=== PATIENT | female | born 1970 | race Caucasian/White ===

== ENCOUNTER → 2016-05-15 | Outpatient (CLI) | payer BC ==
[2016-05-15 15:11] VITALS: BP 138/87; PULSE 78; TEMP 97.8; BMI 53.2
--- NOTE | 2016-05-15 15:22 | P.BASOAP ---
Subjective Principal diagnosis: Morbid obesity Patient here today follow-up post sleeve gastrectomy. She has an about 3 months now.. Denies hunger. No heartburn. She is still taking her omeprazole once daily. No problems with vomiting. She has had about an 18 pound weight loss in the last 7 weeks. No abdominal pain. Objective - Vital Signs Vital signs: Vital Signs Temp 97.8 F 05/15/16 15:05 Pulse 78 05/15/16 15:05 Resp BP 138/87 05/15/16 15:05 Pulse Ox Intake & Output 05/14/16 05/15/16 05/15/16 18:59 06:59 18:59 Weight 132.086 kg - Exam Abdomen: Soft, nontender, nondistended Assessment/Plan (1) Morbid obesity Narrative/Plan: Continue daily PPIs for now. We'll check 3 months lab work. Continue following exercise and dietary regimen. Follow-up in the office 6 weeks. Plan: Date: 05/15/16 Initial Weight: 153.859 kg Initial BMI: 62.0 Current Weight: 132.086 kg Current BMI: 53.2 Type of Surgery: Total Volume in Band: Previous Volume: Volume Removed: Volume Added: Band Size:
[2016-05-15 16:15] LABS: CHCM 32.1; HCT 42.7 % (34.0-46.0); HDW 2.34; HGB 13.9 gm/dL (11.4-16.0); MCH 29.6 pg (25.0-35.0); MCHC 32.5 g/dL (31.0-37.0); MCV 90.9 fL (80.0-100.0); Mean Platelet Volume 7.3; RDW 13.6 % (11.5-15.5); WBC 8.3 k/uL (3.8-10.6)
[2016-05-15 16:25] LABS: ALT 37 U/L (9-52); AST 25 U/L (14-36); Alkaline Phosphatase 109 U/L (38-126); Anion Gap 14 mmol/L; Blood Urea Nitrogen 15 mg/dL (7-17); Calcium 9.6 mg/dL (8.4-10.2); Carbon Dioxide 26 mmol/L (22-30); Chloride 105 mmol/L (98-107); Glucose 129 mg/dL (74-99); Iron 30 ug/dL (37-170); Non-African American GFR(MDRD) >60 (>60 ml/min/1.73 sqM); Potassium 3.9 mmol/L (3.5-5.1); Sodium 145 mmol/L (137-145); Total Bilirubin 0.6 mg/dL (0.2-1.3); Total Protein 7.3 g/dL (6.3-8.2)
[2016-05-15 17:29] LABS: Vitamin B12 328 pg/mL (239-931)
== END | disposition home or self-care (01) ==
LOC: BARWHC3 14:44
PROVIDERS: ATTEND Surgery
DX: E66.01 Morbid (severe) obesity due to excess calories (principal); K90.9 Intestinal malabsorption, unspecified; E46 Unspecified protein-calorie malnutrition; E55.9 Vitamin D deficiency, unspecified; Z48.815 Encounter for surgical aftercare following surgery on the digestive system; Z79.899 Other long term (current) drug therapy
CPT/HCPCS: 36415; 80053; 82306; 82607; 82746; 83540; 84425; 85027; 99211

== ENCOUNTER 2016-06-21 09:55 | Emergency (ER) | payer BC ==
[2016-06-21] MEDS ORDERED: ONDANSETRON 4 MG/2 ML VIAL IVP STA ×2 (10:29→15:36)
[2016-06-21] MEDS ORDERED: RX INFO: IV CONTRAST WAS GIVEN 1 EACH MISC MISCELLANE PRN (10:29)
[2016-06-21] MEDS ORDERED: HYDROmorphone 1 MG/ML 1 ML SYRINGE IVP STA (10:29)
[2016-06-21] MEDS ORDERED: IOHEXOL 350 MG/ML 25 ML BOTTLE (ORAL USE) PO PRN (10:29)
[2016-06-21] MEDS ORDERED: SODIUM CHLORIDE 0.9% 1,000 ML IV ONE ×2 (10:29→11:36)
[2016-06-21 10:50] LABS: Basophils # (A) 0.1 k/uL (0-0.2); Basophils % (A) 1 %; CH 29.9; CHCM 33.4; Eosinophils # (A) 0.2 k/uL (0-0.7); Eosinophils % (A) 2 %; HCT 41.5 % (34.0-46.0); HDW 2.29; HGB 13.9 gm/dL (11.4-16.0); Luc # (Auto) 0.21; Luc % (Auto) 2; Lymphocytes # (A) 1.8 k/uL (1.0-4.8); Lymphocytes % (A) 19 %; MCHC 33.4 g/dL (31.0-37.0); MCV 89.8 fL (80.0-100.0); Mean Platelet Volume 7.7; Monocytes # (A) 0.3 k/uL (0-1.0); Monocytes % (A) 3 %; Neutrophils % (A) 73 %; RBC 4.62 m/uL (3.80-5.40); RDW 13.5 % (11.5-15.5); WBC 9.6 k/uL (3.8-10.6); WBC (Perox) 9.74
[2016-06-21 11:01] LABS: INR 1.1 (<1.1); Partial Thromboplastin Time 24.2 sec (22.0-30.0); Prothrombin Time 10.7 sec (9.0-12.0)
[2016-06-21 11:02] LABS: ALT 48 U/L (9-52); AST 79 U/L (14-36); Alkaline Phosphatase 120 U/L (38-126); Anion Gap 13 mmol/L; Blood Urea Nitrogen 14 mg/dL (7-17); Calcium 9.5 mg/dL (8.4-10.2); Carbon Dioxide 26 mmol/L (22-30); Chloride 105 mmol/L (98-107); Glucose 112 mg/dL (74-99); Non-African American GFR(MDRD) >60 (>60 ml/min/1.73 sqM); Potassium 3.8 mmol/L (3.5-5.1); Sodium 144 mmol/L (137-145); Total Bilirubin 0.8 mg/dL (0.2-1.3); Total Protein 7.2 g/dL (6.3-8.2)
[2016-06-21 11:12] LABS: Appearance,Urine Cloudy (Clear); Bacteria,Urine Moderate /hpf; Bilirubin,Urine Negative (Negative); Glucose,Urine (UA) Negative (Negative); Ketones,Urine Negative (Negative); Leukocyte Esterase,Urine Negative (Negative); Mucus,Urine Rare /hpf; Nitrite,Urine Negative (Negative); PH, Urine 5.5 (5.0-8.0); Particle Count 24148; Protein,Urine Trace (Negative); Specific Gravity,Urine 1.021 (1.001-1.035); Squamous Epithelial Cell,Urine 8 /hpf (0-4); UA Billing (MACRO vs. MICRO) MICRO; Urobilinogen,Urine <2.0 mg/dL (<2.0); WBC,Urine 14 /hpf (0-5)
--- NOTE | 2016-06-21 12:10 | CT ---
EXAMINATION TYPE: CT abdomen pelvis w con DATE OF EXAM: 06/21/2016 11:51 AM COMPARISON: NONE HISTORY: 45-year-old female with abdominal and pelvic pain TECHNIQUE: Contiguous axial scanning of the abdomen and pelvis following administration of 96 ml Omni paque 300 IV contrast. Delayed images through the kidneys and coronal/sagittal reconstructions perfo rmed. CT DLP: 3009.8 mGycm Automated exposure control for dose reduction was used. FINDINGS: The heart is upper limits of normal in size without pericardial effusion. Postsurgical changes of sleeve gastrectomy. There is mild prominence of the bile duct 9 mm but with normal distal tapering. Also, the gallbladder is mildly distended at 4.7 cm wide. The liver is enlarged at 19.8 cm craniocaudal. No focal liver le taiwo seen. Adrenal glands, left kidney, spleen, and pancreas appear within normal limits. Subcentimeter hypodens ity lateral mid pole right kidney too small for accurate CT characterization, probable cyst. No dilated small bowel, free fluid, or free air. Normal appendix. Mild stool burden and scattered left hemicolonic diverticulosis without pericolonic inflammatory hsieh ge. There are numerous nonenlarged mesenteric lymph nodes in the central mesentery with associated monty mesentery, for example, axial image 49 and coronal image 32. No mesenteric or retroperitoneal lymphad enopathy by CT size criteria. Tiny fatty umbilical hernia. Bladder is nondistended. Uterus surgically absent. Ovaries are visualized with a 1.9 cm dominant foll icle or functional cyst in the left ovary. No abnormal fluid collection in the pelvis or pelvic lymph adenopathy. Bones: Degenerative changes at the hips and bilateral L5 pars defects with grade 1 L5-S1 anterolisthe sis. No osseous destructive process. IMPRESSION: 1. MONTY MESENTERY WITH ASSOCIATED SMALL CENTRAL MESENTERIC LYMPH NODES. FINDINGS SUGGEST MESENTERIC PANNICULITIS. RECOMMEND 3 MONTH FOLLOW-UP EXAM EARLY LYMPHOMA CAN ALSO HAVE THIS APPEARANCE. 2. LEFT-SIDED COLONIC DIVERTICULOSIS WITHOUT ACUTE DIVERTICULITIS. 3. HEPATOMEGALY (19.8 CM). 4. PROMINENCE TO THE BILE DUCT PROBABLY CHRONIC IN THIS PATIENT THERE IS NORMAL DISTAL TAPERING. C ORRELATE WITH ALKALINE PHOSPHATASE AND BILIRUBIN LEVELS. 5. THE GALLBLADDER IS DISTENDED LIKELY DUE TO FASTING STATE. IF RIGHT UPPER QUADRANT PAIN, ULTRASOUND FOLLOW-UP CAN BE PERFORMED.
[2016-06-21 13:20] VITALS: RESP 14
--- NOTE | 2016-06-21 14:43 | US ---
EXAMINATION TYPE: US abdomen limited DATE OF EXAM: 06/21/2016 2:18 PM COMPARISON: CT abdomen and pelvis from earlier today. CLINICAL HISTORY: Pain. EXAM MEASUREMENTS: Liver Length: 18.3 cm Gallbladder Wall: 0.2 cm CBD: 0.9 cm Right Kidney: 10.9 x 4.5 x 4.9 cm Pancreas: portions visualized wnl Liver: Increased attenuation, decreased visualization of vessels suggestive of fatty infiltrate Gallbladder: unable to visualize neck due to obesity, tenderness, extensive bowel gas, portions visu alized wnl, Evidence for sonographic Gunderson's sign: entire abdomen tender CBD: dilated Right Kidney: echogenic focus mid measuring 0.4 x 0.3 x 0.5cm Patient morbidly obese makings exam technically difficult and somewhat limited. Visualized pancreas i s unremarkable and correlates with recent CT. Liver is heterogeneously hyperechoic in appearance cons istent with diffuse fatty infiltration. No obvious mass or ductal dilatation is seen. Common bile christel t is mildly dilated which correlates with CT. Gallbladder has distended margins without intraluminal CT dense gallstones. No pericholecystic fluid or abnormal gallbladder wall thickening is seen. IMPRESSION: No gallstones or ultrasound evidence for acute cholecystitis. There is mild extrahepatic biliary dilatation without intrahepatic biliary dilatation. Need to further investigate by ERCP shoul d be based on clinical and lab correlation.
[2016-06-21] MEDS ORDERED: MORPHINE SULFATE 4 MG/ML SYRINGE IVP STA (15:36)
--- NOTE | 2016-06-21 15:42 | ED ---
General Adult HPI - General Chief complaint: Abdominal Pain Stated complaint: POST OP PAIN Time Seen by Provider: 06/21/16 10:12 Source: patient Mode of arrival: wheelchair Limitations: no limitations - History of Present Illness Initial comments: 45-year-old female with a past medical history of gastric bypass presented for evaluation of sudden onset abdominal pain 2 hours prior to arrival. She states the abdominal pain is located in the suprapubic/ periumbilical region without any radiation. Pain was minimal initially but acutely worsened over the second hour prior to coming to the ED. There is associated nausea and vomiting with out any other symptoms including chest pain , shortness of breath, fevers, chills. She states last night she had some diarrhea but denies any bowel abnormalities today. Denies any vaginal bleeding or discharge and has had a tubal ligation. - Related Data Home Medications Medication Instructions Recorded Confirmed Benazepril HCl [Lotensin] 20 mg PO HS 11/07/15 06/21/16 Escitalopram [Lexapro] 10 mg PO HS 11/07/15 06/21/16 Calcium Citrate 250 mg PO DAILY 05/15/16 06/21/16 Multivitamin [Multivitamins Adult 1 tab PO DAILY 05/15/16 06/21/16 Gummies] Ferrous Sulfate [Feosol] 325 mg PO DAILY 06/21/16 06/21/16 Previous Rx's Medication Instructions Recorded Omeprazole 20 mg PO DAILY #90 cap 01/30/16 HYDROcodone/APAP 5-325MG [Dickson 1 - 2 tab PO Q6HR PRN #14 tab 06/21/16 5-325] Ondansetron Odt [Zofran Odt] 4 mg PO Q8HR PRN #14 tab 06/21/16 Allergies Allergy/AdvReac Type Severity Reaction Status Date / Time Sulfa (Sulfonamide Allergy Rash/Hives Verified 06/21/16 10:46 Antibiotics) and SOB Review of Systems ROS Statement: Those systems with pertinent positive or pertinent negative responses have been documented in the HPI. General: Patient denies fever, chills, positive nausea and vomiting. HEENT: No visual changes. No eye pain. No nasal symptoms. No dysphagia.No odynophagia. No ENT pain. Cardiac: No chest pain. No palpitations. Pulmonary; No dyspnea. No cough. GI: Positive abdominal pain. Positive diarrhea last night. No constipation. No bowel habit changes. No melena. No hematochezia. : No dysuria.No hematuria. No hesitancy. No urgency. No renal lithiasis history. Musculoskeletal: No musculoskeletal pain. Orthopedic: Denies fracture history. Integumentary: Denies rash. Denies pruritis. Neurologic: Denies any lateralizing weakness. Denies numbness. Denies tingling. No seizure activity. Endocrine: Denies polyuria and polydipsia. Heme/Onc: Denies anemia. Denies cancer. Denies adenopathy. ROS Other: All systems not noted in ROS Statement are negative. Past Medical History Past Medical History: Hypertension, Pneumonia, Sleep Apnea/CPAP/BIPAP History of Any Multi-Drug Resistant Organisms: None Reported Past Surgical History: Hysterectomy Additional Past Surgical History / Comment(s): 01-30-16 LAP SLEEVE GASTRECTOMY W /REPAIR OF HAITAL HERNIA Additional Past Anesthesia/Blood Transfusion Reaction / Comment(s): c/o itching with twilight Past Psychological History: Anxiety Smoking Status: Never smoker Past Alcohol Use History: None Reported Past Drug Use History: None Reported General Exam - General Exam Comments Initial Comments: General: The patient is awake and alert, in no distress, and does not appear acutely ill. Eye: Pupils are equal, round and reactive to light, extra-ocular movements are intact; there is normal conjunctiva bilaterally. No signs of icterus. Ears, nose, mouth and throat: There are moist mucous membranes and no oral lesions. Neck: The neck is supple, there is no tenderness or JVD. Cardiovascular: There is a regular rate and rhythm. No murmur, rub or gallop is appreciated. Respiratory: Lungs are clear to auscultation, respirations are non-labored, breath sounds are equal. No wheezes, stridor, rales, or rhonchi. Gastrointestinal: Soft, non-distended, mildly tender to palpation in the suprapubic and periumbilical area without Gunderson's sign or McBurney's point tenderness without masses or organomegaly noted. There is no rebound or guarding present. No CVA tenderness. Bowel sounds are unremarkable. Back: There is no tenderness to palpation in the midline. There is no obvious deformity. No rashes noted. Musculoskeletal: Normal ROM, no tenderness, There is no pedal edema. There is no calf tenderness or swelling. Sensation intact. Pulses equal bilaterally 2+. Neurological: CN II-XII intact, There are no obvious motor or sensory deficits. Coordination appears grossly intact. Speech is normal. Skin: Skin is warm and dry and no rashes or lesions are noted. Psychiatric: Cooperative, appropriate mood & affect, normal judgment. Limitations: no limitations Course Vital Signs 06/21/16 06/21/16 06/21/16 10:01 10:51 13:19 Temperature 97 F L Pulse Rate 108 H 105 H 73 Respiratory 24 16 14 Rate Blood Pressure 170/74 150/78 129/62 O2 Sat by Pulse 100 98 99 Oximetry 06/21/16 06/21/16 15:55 16:23 Temperature 98.4 F Pulse Rate 71 64 Respiratory 14 14 Rate Blood Pressure 115/59 117/57 O2 Sat by Pulse 95 95 Oximetry EKG Findings - EKG Comments: EKG Findings:: Normal sinus rhythm with prolonged QT and a ventricular rate of 92 bpm, MIKO 164, QRS 90, QT/QTc 402/497 Medical Decision Making - Medical Decision Making 45-year-old female with past medical history of gastric bypass presented for evaluation of suprapubic/periumbilical abdominal pain that started suddenly 2 hours prior to arrival acutely worsening over that second hour. Upon presentation to the ED patient does appear distressed and is holding her abdomen. There is tenderness to palpation in the aforementioned areas but no peritoneal signs including rebound, rigidity, or guarding. Given her past medical history of gastric bypass concern for viscus perforation versus alcohol distraction is high on differential. We'll obtain CT abdomen, EKG, labs, and provide IV fluids, pain control, and Zofran. Labs revealed a mild lactic acidosis but otherwise no significant abnormalities. Imaging results noted below. CT abdomen with gastric prep showing monty mesentery with associated small central mesenteric lymph nodes. Findings suggest mesenteric panniculitis. There is also left-sided colonic diverticulosis without diverticulitis. There is prominence of the bile ducts probably chronic in this patient as there is normal distal tapering. Gallbladder is distended likely due to fasting state. Ultrasound abdomen shows no gallstones or ultrasound evidence of acute cholecystitis. There is mild extrahepatic biliary dilatation without intrahepatic biliary dilatation. Patient reevaluated and had resolution of her symptoms. She was updated on these results and stated that given her improvement she would prefer to be discharged home. Admission was offered but she stated she would rather go home and follow-up as an outpatient. She is informed that this follow-up must occur within the next 24 hours with the exception of if her symptoms worsen in which case she should return to this facility immediately. The patient's primary care physician Dr. Friend was updated on her status and stated he would see her in the morning. Her bypass surgeon Dr. Guillen was also called and agreed with plan to discharge and outpatient follow-up. The patient was informed of this and agreed with plan to follow-up with Dr. Friend in the morning. She further acknowledged that she would return to this facility if her symptoms should worsen or persist during the next 24 hours. She acknowledged an understanding of this information and agreed with this plan of care. - Lab Data Result diagrams: 06/21/16 10:41 06/21/16 10:41 Lab Results 06/21/16 06/21/16 06/21/16 Range/Units 10:41 10:41 10:41 WBC 9.6 (3.8-10.6) k/uL RBC 4.62 (3.80-5.40) m/uL Hgb 13.9 (11.4-16.0) gm/dL Hct 41.5 (34.0-46.0) % MCV 89.8 (80.0-100.0) fL MCH 30.0 (25.0-35.0) pg MCHC 33.4 (31.0-37.0) g/dL RDW 13.5 (11.5-15.5) % Plt Count 316 (150-450) k/uL Neutrophils % 73 % Lymphocytes % 19 % Monocytes % 3 % Eosinophils % 2 % Basophils % 1 % Neutrophils # 7.0 (1.3-7.7) k/uL Lymphocytes # 1.8 (1.0-4.8) k/uL Monocytes # 0.3 (0-1.0) k/uL Eosinophils # 0.2 (0-0.7) k/uL Basophils # 0.1 (0-0.2) k/uL PT (9.0-12.0) sec INR (<1.1) APTT (22.0-30.0) sec Sodium 144 (137-145) mmol/L Potassium 3.8 (3.5-5.1) mmol/L Chloride 105 (98-107) mmol/L Carbon Dioxide 26 (22-30) mmol/L Anion Gap 13 mmol/L BUN 14 (7-17) mg/dL Creatinine 0.65 (0.52-1.04) mg/dL Est GFR (MDRD) Af Amer >60 (>60 ml/min/1.73 sqM) Est GFR (MDRD) Non-Af >60 (>60 ml/min/1.73 sqM) Glucose 112 H (74-99) mg/dL Plasma Lactic Acid Berry 2.6 H* (0.7-2.0) mmol/L Calcium 9.5 (8.4-10.2) mg/dL Total Bilirubin 0.8 (0.2-1.3) mg/dL AST 79 H (14-36) U/L ALT 48 (9-52) U/L Alkaline Phosphatase 120 (38-126) U/L Total Protein 7.2 (6.3-8.2) g/dL Albumin 4.1 (3.5-5.0) g/dL Lipase 66 (23-300) U/L HCG, Qual Urine Color Urine Appearance (Clear) Urine pH (5.0-8.0) Ur Specific [place] (1.001-1.035) Urine Protein (Negative) Urine Glucose (UA) (Negative) Urine Ketones (Negative) Urine Blood (Negative) Urine Nitrite (Negative) Urine Bilirubin (Negative) Urine Urobilinogen (<2.0) mg/dL Ur Leukocyte Esterase (Negative) Urine WBC (0-5) /hpf Ur Squamous Epith Cells (0-4) /hpf Urine Bacteria (None) /hpf Urine Mucus (None) /hpf 06/21/16 06/21/16 06/21/16 Range/Units 10:41 10:50 10:50 WBC (3.8-10.6) k/uL RBC (3.80-5.40) m/uL Hgb (11.4-16.0) gm/dL Hct (34.0-46.0) % MCV (80.0-100.0) fL MCH (25.0-35.0) pg MCHC (31.0-37.0) g/dL RDW (11.5-15.5) % Plt Count (150-450) k/uL Neutrophils % % Lymphocytes % % Monocytes % % Eosinophils % % Basophils % % Neutrophils # (1.3-7.7) k/uL Lymphocytes # (1.0-4.8) k/uL Monocytes # (0-1.0) k/uL Eosinophils # (0-0.7) k/uL Basophils # (0-0.2) k/uL PT 10.7 (9.0-12.0) sec INR 1.1 (<1.1) APTT 24.2 (22.0-30.0) sec Sodium (137-145) mmol/L Potassium (3.5-5.1) mmol/L Chloride (98-107) mmol/L Carbon Dioxide (22-30) mmol/L Anion Gap mmol/L BUN (7-17) mg/dL Creatinine (0.52-1.04) mg/dL Est GFR (MDRD) Af Amer (>60 ml/min/1.73 sqM) Est GFR (MDRD) Non-Af (>60 ml/min/1.73 sqM) Glucose (74-99) mg/dL Plasma Lactic Acid Berry (0.7-2.0) mmol/L Calcium (8.4-10.2) mg/dL Total Bilirubin (0.2-1.3) mg/dL AST (14-36) U/L ALT (9-52) U/L Alkaline Phosphatase (38-126) U/L Total Protein (6.3-8.2) g/dL Albumin (3.5-5.0) g/dL Lipase (23-300) U/L HCG, Qual Not Detected Urine Color Yellow Urine Appearance Cloudy H (Clear) Urine pH 5.5 (5.0-8.0) Ur Specific [place] 1.021 (1.001-1.035) Urine Protein Trace H (Negative) Urine Glucose (UA) Negative (Negative) Urine Ketones Negative (Negative) Urine Blood Negative (Negative) Urine Nitrite Negative (Negative) Urine Bilirubin Negative (Negative) Urine Urobilinogen <2.0 (<2.0) mg/dL Ur Leukocyte Esterase Negative (Negative) Urine WBC 14 H (0-5) /hpf Ur Squamous Epith Cells 8 H (0-4) /hpf Urine Bacteria Moderate H (None) /hpf Urine Mucus Rare H (None) /hpf 03/23/17 Range/Units 14:00 WBC (3.8-10.6) k/uL RBC (3.80-5.40) m/uL Hgb (11.4-16.0) gm/dL Hct (34.0-46.0) % MCV (80.0-100.0) fL MCH (25.0-35.0) pg MCHC (31.0-37.0) g/dL RDW (11.5-15.5) % Plt Count (150-450) k/uL Neutrophils % % Lymphocytes % % Monocytes % % Eosinophils % % Basophils % % Neutrophils # (1.3-7.7) k/uL Lymphocytes # (1.0-4.8) k/uL Monocytes # (0-1.0) k/uL Eosinophils # (0-0.7) k/uL Basophils # (0-0.2) k/uL PT (9.0-12.0) sec INR (<1.1) APTT (22.0-30.0) sec Sodium (137-145) mmol/L Potassium (3.5-5.1) mmol/L Chloride (98-107) mmol/L Carbon Dioxide (22-30) mmol/L Anion Gap mmol/L BUN (7-17) mg/dL Creatinine (0.52-1.04) mg/dL Est GFR (MDRD) Af Amer (>60 ml/min/1.73 sqM) Est GFR (MDRD) Non-Af (>60 ml/min/1.73 sqM) Glucose (74-99) mg/dL Plasma Lactic Acid Berry 1.0 (0.7-2.0) mmol/L Calcium (8.4-10.2) mg/dL Total Bilirubin (0.2-1.3) mg/dL AST (14-36) U/L ALT (9-52) U/L Alkaline Phosphatase (38-126) U/L Total Protein (6.3-8.2) g/dL Albumin (3.5-5.0) g/dL Lipase (23-300) U/L HCG, Qual Urine Color Urine Appearance (Clear) Urine pH (5.0-8.0) Ur Specific [place] (1.001-1.035) Urine Protein (Negative) Urine Glucose (UA) (Negative) Urine Ketones (Negative) Urine Blood (Negative) Urine Nitrite (Negative) Urine Bilirubin (Negative) Urine Urobilinogen (<2.0) mg/dL Ur Leukocyte Esterase (Negative) Urine WBC (0-5) /hpf Ur Squamous Epith Cells (0-4) /hpf Urine Bacteria (None) /hpf Urine Mucus (None) /hpf Disposition Clinical Impression: Abdominal pain, Nausea and vomiting Disposition: HOME SELF-CARE Condition: Stable Instructions: Abdominal Pain (ED), Bowel Obstruction (ED), Ileus (ED) Additional Instructions: Please use medication as discussed. Please follow up with family doctor if symptoms have not improved over the next two days. Please return to the emergency room if your symptoms increase or worsen or for any other concerns. Prescriptions: HYDROcodone/APAP 5-325MG [Dickson 5-325] 1 - 2 tab PO Q6HR PRN #14 tab PRN Reason: Analgesia Ondansetron Odt [Zofran Odt] 4 mg PO Q8HR PRN #14 tab PRN Reason: Nausea Referrals: Ezekiel Friend MD [Primary Care Provider] - 1-2 days Time of Disposition: 15:42
[2016-06-21 16:24] VITALS: BP 117/57; PULSE 64; TEMP 98.4
== END 2016-06-21 16:27 | disposition home or self-care (01) ==
LOC: EC 09:55
DX: R10.33 Periumbilical pain (principal); R11.2 Nausea with vomiting, unspecified; K57.30 Diverticulosis of large intestine without perforation or abscess without bleeding; I10 Essential (primary) hypertension; F41.9 Anxiety disorder, unspecified; Z90.710 Acquired absence of both cervix and uterus; Z98.84 Bariatric surgery status; Z79.899 Other long term (current) drug therapy; Z88.2 Allergy status to sulfonamides
CPT/HCPCS: 36415; 93005; 80053; 83605; 83690; 85025; 85610; 85730; 81001; 84703; 76705; 74177; 99284; 96374; 96375 ×2; 96376; 96361 ×4; J2270; J2405; J1170; Q9967

== ENCOUNTER → 2016-08-21 | Outpatient (CLI) | payer BC ==
[2016-08-21 15:04] VITALS: BP 125/71; PULSE 74; RESP 125; TEMP 97.9; BMI 51.2
--- NOTE | 2016-08-21 18:56 | PN ---
DATE OF SERVICE: 08/21/2016 CHIEF COMPLAINT: Morbid obesity. INTERVAL HISTORY: Patient was seen in followup today in the office. She missed her last appointment because of tax season. Her last visit was in May. Since that time the patient did have a single episode in mid May where she had sudden-onset abdominal pain and vomiting. 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 The patient had her films reviewed at [facility], where she has a family member who works in the radiology department. Short-term followup in August was advised at that time. The patient is asymptomatic at this time. No heartburn. No abdominal pain. She is due today for 6-month lab work. She has been exercising at the [employer] 3 times per week. No hunger. She thinks that she eats about 25% of the volume that she did preoperatively. PHYSICAL EXAM: Abdomen is soft, nontender, nondistended. IMPRESSION: Bzyay-eatj-pore-old female, post sleeve gastrectomy. PLAN: 1. Await repeat CT scan. 2. Follow up in the office in 6 weeks. 3. Six-month lab work ordered.
== END | disposition home or self-care (01) ==
LOC: BARWHC3 14:43
PROVIDERS: ATTEND Surgery
DX: E66.01 Morbid (severe) obesity due to excess calories (principal); Z98.84 Bariatric surgery status
CPT/HCPCS: 97803; 99211

== ENCOUNTER → 2016-09-18 | Outpatient (CLI) | payer BC ==
[2016-09-18 14:17] LABS: CH 30.8; CHCM 32.6; HCT 43.7 % (34.0-46.0); HDW 2.16; HGB 13.8 gm/dL (11.4-16.0); MCHC 31.7 g/dL (31.0-37.0); MCV 94.7 fL (80.0-100.0); Mean Platelet Volume 7.4; RBC 4.62 m/uL (3.80-5.40); RDW 13.2 % (11.5-15.5); WBC 7.8 k/uL (3.8-10.6)
[2016-09-18 15:53] LABS: ALT 37 U/L (9-52); AST 30 U/L (14-36); Alkaline Phosphatase 114 U/L (38-126); Anion Gap 12 mmol/L; Blood Urea Nitrogen 11 mg/dL (7-17); Calcium 9.5 mg/dL (8.4-10.2); Carbon Dioxide 27 mmol/L (22-30); Chloride 103 mmol/L (98-107); Glucose 78 mg/dL (74-99); Iron 66 ug/dL (37-170); Non-African American GFR(MDRD) >60 (>60 ml/min/1.73 sqM); Potassium 4.2 mmol/L (3.5-5.1); Sodium 142 mmol/L (137-145); Total Bilirubin 0.5 mg/dL (0.2-1.3); Total Protein 6.6 g/dL (6.3-8.2)
[2016-09-18 16:40] LABS: Vitamin B12 360 pg/mL (239-931)
--- NOTE | 2016-09-18 17:02 | CT ---
EXAMINATION TYPE: CT abdomen w con DATE OF EXAM: 09/18/2016 COMPARISON: Prior CT abdomen pelvis 06/21/2016 HISTORY: Low abdominal pain with vomiting x [address] DLP: 1351.00 mGycm Automated exposure control for dose reduction was used. TECHNIQUE: Helical acquisition of images was performed from the lung bases through the top of iliac crest to include entire abdomen. CONTRAST: Performed with Oral Contrast and with IV Contrast, patient injected with 100 mL of Omnipaque 300. FINDINGS: LUNG BASES: No significant abnormality is appreciated. LIVER/GB: The liver shows low attenuation similar to prior exam. The liver is enlarged. Gallbladder i s stable and unremarkable PANCREAS: No significant abnormality is seen. SPLEEN: No significant abnormality is seen. ADRENALS: No significant abnormality is seen. KIDNEYS: No significant abnormality is seen. BOWEL: Postop changes are again noted status post gastric sleeve. There is a small hiatal hernia or dilation of the distal esophagus as on prior. LYMPH NODES: No significant abnormality is appreciated. OSSEOUS STRUCTURES: Anterolisthesis grade 1 suspected L4-5, spondylolysis present at L5. FREE AIR: No Free Air visible ASCITES: None visible. RETROPERITONEAL ADENOPATHY: No Retroperitoneal Adenopathy visible. OTHER: The mesenteric density seen on previous exam shows a stable appearance. Small umbilical hernia contains fat. IMPRESSION: STABLE EXAM. HEPATOMEGALY WITH PROBABLE FATTY INFILTRATION OF THE LIVER. 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 POSTOP CHANGES. ADDITIONAL FINDINGS ABOVE.
== END | disposition home or self-care (01) ==
LOC: RADCTMAIN 13:11
PROVIDERS: ATTEND Family Medicine
DX: R16.0 Hepatomegaly, not elsewhere classified (principal); R11.10 Vomiting, unspecified
CPT/HCPCS: 84425; 80053; 82607; 83540; 84590; 85027; 82306; 74160; 36415; Q9967

== ENCOUNTER → 2016-10-23 | Outpatient (CLI) | payer BC ==
[2016-10-23 15:43] VITALS: BP 132/75; PULSE 97; RESP 20; TEMP 98.6; BMI 49.1
--- NOTE | 2016-10-23 16:35 | P.BASOAP ---
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 She is following [facility] for these issues. She was started on prednisone 30 mg for 1 month. She then plans to taper. A follow-up CAT scan is scheduled after the steroid taper. Her symptoms have improved fairly dramatically with the steroid treatment. Her nausea and abdominal bloating cramps and vomiting have improved. Denies GERD. Still losing weight. Caloric intake proximally 700-750 per day. Objective - Vital Signs Vital signs: Vital Signs Temp 98.6 F 10/23/16 15:40 Pulse 97 10/23/16 15:40 Resp 20 10/23/16 15:40 BP 132/75 10/23/16 15:40 Pulse Ox Intake & Output 10/22/16 10/23/16 10/23/16 18:59 06:59 18:59 Weight 121.88 kg - Exam Abdomen: Soft, nontender, nondistended Assessment/Plan (1) Morbid obesity Narrative/Plan: CAT scan findings were reviewed. She plans to continue her dietary and exercise regimen. Patient was frustrated with the delay in the office today and would like to wait until her 1 year anniversary for a follow-up visit which will be scheduled in mid December. We'll check one year lab work at that point. Plan: Date: 10/23/16 Initial Weight: 153.859 kg Initial BMI: 62.0 Current Weight: 121.88 kg Current BMI: 49.1 Type of Surgery: Total Volume in Band: Previous Volume: Volume Removed: Volume Added: Band Size:
== END | disposition home or self-care (01) ==
LOC: BARWHC3 14:28
PROVIDERS: ATTEND Surgery
DX: E66.01 Morbid (severe) obesity due to excess calories (principal)
CPT/HCPCS: 99211

== ENCOUNTER 2018-04-02 02:01 | Observation (INO) | payer BC ==
[2018-04-02] MEDS ORDERED: MORPHINE SULFATE 4 MG/ML SYRINGE IV STA ×2 (02:48→06:05)
[2018-04-02] MEDS ORDERED: SODIUM CHLORIDE 0.9% 500 ML 500 ML IV STA (02:48)
[2018-04-02] MEDS ORDERED: ONDANSETRON 4 MG/2 ML VIAL IVP STA (02:48)
[2018-04-02 02:49] LABS: Basophils % (A) 0 %; Eosinophils # (A) 0.3 k/uL (0-0.7); Eosinophils % (A) 4 %; HGB 14.2 gm/dL (11.4-16.0); Lymphocytes # (A) 2.2 k/uL (1.0-4.8); Lymphocytes % (A) 32 %; MCH 30.4 pg (25.0-35.0); MCHC 32.9 g/dL (31.0-37.0); MCV 92.3 fL (80.0-100.0); Mean Platelet Volume 6.9; Monocytes # (A) 0.2 k/uL (0-1.0); Monocytes % (A) 3 %; Neutrophils % (A) 59 %; Platelet Count 311 k/uL (150-450); RBC 4.66 m/uL (3.80-5.40); RDW 12.1 % (11.5-15.5); WBC 6.8 k/uL (3.8-10.6)
--- NOTE | 2018-04-02 02:51 | ED ---
Abdominal Pain HPI - General Chief Complaint: Abdominal Pain Stated Complaint: Lower Abdominal Pain Time Seen by Provider: 04/02/18 02:25 Source: patient Mode of arrival: wheelchair Limitations: no limitations - History of Present Illness MD Complaint: abdominal pain -: hour(s) Location: LLQ, RLQ Radiation: none Migration to: no migration Severity: severe Quality: cramping, aching Consistency: constant Improves With: medication Worsens With: nothing Associated Symptoms: nausea, vomiting - Related Data Home Medications Medication Instructions Recorded Confirmed Escitalopram [Lexapro] 10 mg PO HS 11/07/15 04/02/18 Ferrous Sulfate [Feosol] 325 mg PO DAILY 06/21/16 04/02/18 Multivitamin [Multiple Vitamins] 1 tab PO DAILY 08/22/16 04/02/18 Acetaminophen [Tylenol Arthritis] 1,300 mg PO Q12H PRN 04/02/18 04/02/18 Benazepril [Lotensin] 10 mg PO HS 04/02/18 04/02/18 HYDROcodone/APAP 10-325MG [[place] 1 tab PO Q6H PRN 04/02/18 04/02/18 10-325] Ondansetron [Zofran] 4 mg PO Q8H PRN 04/02/18 04/02/18 Ranitidine HCl [Zantac] 150 mg PO DAILY 04/02/18 04/02/18 Previous Rx's Medication Instructions Recorded Dicyclomine [Bentyl] 20 mg PO QID #15 tablet 04/02/18 Allergies Allergy/AdvReac Type Severity Reaction Status Date / Time Sulfa (Sulfonamide Allergy Rash/Hives Verified 04/02/18 07:30 Antibiotics) and SOB Review of Systems ROS Statement: Those systems with pertinent positive or pertinent negative responses have been documented in the HPI. ROS Other: All systems not noted in ROS Statement are negative. Constitutional: Denies: fever, chills Respiratory: Denies: cough, dyspnea Cardiovascular: Denies: chest pain, palpitations, syncope Gastrointestinal: Reports: as per HPI, abdominal pain, nausea, vomiting. 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 Absent: scleral icterus, conjunctival injection Respiratory exam: Present: normal lung sounds bilaterally. Absent: respiratory distress, wheezes, rales, rhonchi, stridor Cardiovascular Exam: Present: regular rate, normal rhythm, normal heart sounds. Absent: systolic murmur, diastolic murmur, rubs, gallop GI/Abdominal exam: Present: soft, tenderness (Right lower quadrant tenderness without rebound or guarding), normal bowel sounds. Absent: distended, guarding , rebound, rigid, mass, hernia Extremities exam: Present: normal inspection, normal capillary refill. Absent: pedal edema, calf tenderness Back exam: Present: normal inspection. Absent: CVA tenderness (R), CVA tenderness (L), vertebral tenderness Neurological exam: Present: alert Skin exam: Present: warm, dry, intact, normal color. Absent: rash Course Vital Signs 04/02/18 04/02/18 04/02/18 02:04 03:00 03:06 Temperature 98.7 F Pulse Rate 96 73 Respiratory 26 H 18 18 Rate Blood Pressure 129/79 118/66 O2 Sat by Pulse 94 L 99 Oximetry 04/02/18 04/02/18 04/02/18 03:47 06:00 06:42 Temperature 97.9 F Pulse Rate 77 77 70 Respiratory 17 18 17 Rate Blood Pressure 123/67 130/84 141/79 O2 Sat by Pulse 97 97 96 Oximetry Medical Decision Making - Lab Data Result diagrams: 04/02/18 02:28 04/02/18 02:28 Lab Results 04/02/18 04/02/18 04/02/18 Range/Units 02:28 02:28 06:02 WBC 6.8 (3.8-10.6) k/uL RBC 4.66 (3.80-5.40) m/uL Hgb 14.2 (11.4-16.0) gm/dL Hct 43.0 (34.0-46.0) % MCV 92.3 (80.0-100.0) fL MCH 30.4 (25.0-35.0) pg MCHC 32.9 (31.0-37.0) g/dL RDW 12.1 (11.5-15.5) % Plt Count 311 (150-450) k/uL Neutrophils % 59 % Lymphocytes % 32 % Monocytes % 3 % Eosinophils % 4 % Basophils % 0 % Neutrophils # 4.0 (1.3-7.7) k/uL Lymphocytes # 2.2 (1.0-4.8) k/uL Monocytes # 0.2 (0-1.0) k/uL Eosinophils # 0.3 (0-0.7) k/uL Basophils # 0.0 (0-0.2) k/uL Sodium 140 (137-145) mmol/L Potassium 4.2 (3.5-5.1) mmol/L Chloride 107 (98-107) mmol/L Carbon Dioxide 25 (22-30) mmol/L Anion Gap 8 mmol/L BUN 15 (7-17) mg/dL Creatinine 0.66 (0.52-1.04) mg/dL Est GFR (CKD-EPI)AfAm >90 (>60 ml/min/1.73 sqM) Est GFR (CKD-EPI)NonAf >90 (>60 ml/min/1.73 sqM) Glucose 121 H (74-99) mg/dL Calcium 8.8 (8.4-10.2) mg/dL Total Bilirubin 0.6 (0.2-1.3) mg/dL AST 67 H (14-36) U/L ALT 34 (9-52) U/L Alkaline Phosphatase 89 (38-126) U/L Total Protein 6.6 (6.3-8.2) g/dL Albumin 3.8 (3.5-5.0) g/dL Amylase 65 (30-110) U/L Lipase 57 (23-300) U/L Urine Color Yellow Urine Appearance Clear (Clear) Urine pH 5.5 (5.0-8.0) Ur Specific [place] 1.026 (1.001-1.035) Urine Protein Negative (Negative) Urine Glucose (UA) Negative (Negative) Urine Ketones Negative (Negative) Urine Blood Negative (Negative) Urine Nitrite Negative (Negative) Urine Bilirubin Negative (Negative) Urine Urobilinogen 2.0 (<2.0) mg/dL Ur Leukocyte Esterase Negative (Negative) Disposition Clinical Impression: Abdominal pain Disposition: ADMITTED IP TO THIS HOSP Condition: Fair Instructions: Abdominal Pain (ED) Prescriptions: Dicyclomine [Bentyl] 20 mg PO QID #15 tablet Is patient prescribed a controlled substance at d/c from ED?: Yes Referrals: Ezekiel Friend MD [Primary Care Provider] - 1-2 days Bib Bill MD [STAFF PHYSICIAN] - 1-2 days
[2018-04-02 02:58] LABS: ALT 34 U/L (9-52); AST 67 U/L (14-36); Albumin 3.8 g/dL (3.5-5.0); Alkaline Phosphatase 89 U/L (38-126); Amylase 65 U/L (30-110); Anion Gap 8 mmol/L; Blood Urea Nitrogen 15 mg/dL (7-17); Calcium 8.8 mg/dL (8.4-10.2); Carbon Dioxide 25 mmol/L (22-30); Chloride 107 mmol/L (98-107); Glucose 121 mg/dL (74-99); Lipase 57 U/L (23-300); Potassium 4.2 mmol/L (3.5-5.1); Sodium 140 mmol/L (137-145); Total Bilirubin 0.6 mg/dL (0.2-1.3); Total Protein 6.6 g/dL (6.3-8.2)
[2018-04-02] MEDS ORDERED: diphenhydrAMINE 50 MG/ML 1 ML VIAL IVP STA (03:07)
--- NOTE | 2018-04-02 03:49 | CT ---
EXAMINATION TYPE: CT abdomen pelvis wo con DATE OF EXAM: 04/02/2018 COMPARISON: 09/18/2016 HISTORY: lower abd pain CT DLP: 1282 mGycm Automated exposure control for dose reduction was used. TECHNIQUE: Helical acquisition of images was performed from the lung bases through the pelvis. FINDINGS: Lung bases are clear. There is no pleural effusion. Heart size is normal. There are clips from bariatric surgery on the stomach. There is small hiatal hernia. Liver spleen kelly creas appear normal. Bile ducts are not dilated. Gallbladder is large and measures 4.7 cm. There is no adrenal mass. Kidneys have normal size and contour. There is no hydronephrosis. There is no retroperitoneal adenopathy. There is are not dilated. Bladder distends smoothly. There is no ingui nal hernia. There are numerous diverticula in the sigmoid colon. There is no free fluid in the pelvis . There is hysterectomy. The appendix appears normal. There is minimal fat stranding in the small bow el mesentery. There are a few small bowel mesenteric lymph nodes that measure less than 1 cm. There i s no evidence of a bowel obstruction. I see no intestinal wall thickening. There is L5 spondylolysis. There is first-degree L5-S1 spondylolisthesis. There is no evidence of free air. IMPRESSION: THERE IS SMALL BOWEL MESENTERIC EDEMA SLIGHTLY WORSE THAN LAST EXAM AND COULD RELATE TO ADENITIS. THE RE IS STABLE FIRST-DEGREE L5-S1 SPONDYLOLISTHESIS. MILDLY ENLARGED GALLBLADDER CONSISTENT WITH GALLBL ADDER DYSFUNCTION. GALLBLADDER INCREASED COMPARED TO OLD EXAM.
[2018-04-02 06:19] LABS: Appearance,Urine Clear (Clear); Bilirubin,Urine Negative (Negative); Blood,Urine Negative (Negative); Color,Urine Yellow; Glucose,Urine (UA) Negative (Negative); Ketones,Urine Negative (Negative); Leukocyte Esterase,Urine Negative (Negative); Nitrite,Urine Negative (Negative); PH, Urine 5.5 (5.0-8.0); Protein,Urine Negative (Negative); Specific Gravity,Urine 1.026 (1.001-1.035)
[2018-04-02] MEDS ORDERED: NALOXONE 0.4 MG/ML 1 ML VIAL IV PRN (08:16)
[2018-04-02] MEDS ORDERED: HYDROmorphone 0.5 MG/0.5 ML SYRINGE IVP PRN (08:16)
[2018-04-02] MEDS ORDERED: ONDANSETRON 4 MG TAB PO PRN (08:21)
[2018-04-02 09:39] VITALS: BMI 52.3
[2018-04-02] MEDS: HYDROcodone/APAP 10-325MG 1 EACH TAB PO PRN ×2 (09:55→20:31)
[2018-04-02] MEDS: FERROUS SULFATE 325 MG TAB PO SCH (09:55)
[2018-04-02] MEDS: FAMOTIDINE 20 MG TAB PO SCH (09:55)
--- NOTE | 2018-04-02 10:04 | P.GSCN ---
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 She has active and ongoing treatment regimen with [facility] of which is also through the [facility]. She reports having a previous sleeve gastrectomy over 2 years ago. Initial weight loss is 90 pounds now down to 60 pound weight loss from exposure to steroids. She reports coming off her treatment and hence her abdominal pain primarily of the lower abdomen has gotten worse over the last 4 days. She has been on Imuran including steroids for treatment. Her admission is secondary to abdominal pain. PAST MEDICAL HISTORY: Please see list PAST SURGICAL HISTORY: Please see list MEDICATIONS: Please see list ALLERGIES: Please see list SOCIAL HISTORY: No illicit drug use or recent tobacco use FAMILY HISTORY: Noncontributory REVIEW OF ORGAN SYSTEMS: CONSTITUTIONAL: No reports of fevers or chills. Overall 100+ pounds overweight. HEENT: Denies any troubles with the vision or hearing. ENDOCRINE: No reports of hypothyroidism. No diabetes. RESPIRATORY: Past pneumonia. Has sleep apnea. CARDIOVASCULAR: Denies chest pain or palpitations GI: No blood in stools or constipation. Multiple upper and lower endoscopies for diagnosis of mesenteric panniculitis MUSCULOSKELETAL: Has occasional joint pain including back pain. NEURO: No seizure disorders or headaches. No recent stroke. PSYCH: No suicidal ideation. Has depression. Has anxiety GENITOURINARY: No active blood in urine. No urinary hesitancy. HEMATOLOGIC: No personal or family history of DVTs or pulmonary emboli. Evaluation for lymphoma performed SKIN: No skin cancer. PHYSICAL EXAM: VITAL SIGNS: Reviewed GENERAL: Well-developed pleasant in no acute distress. HEENT: No scleral icterus. Extraocular movements grossly intact. Moist buccal mucosa. NECK: Supple without lymphadenopathy. CHEST: Unlabored respirations. Equal bilateral excursions. CARDIOVASCULAR: Regular rate regular rhythm rhythm. Distal 2+ pulses. ABDOMEN: Soft, nondistended. Tender along the bilateral lower abdomen. No upper quadrant or epigastric tenderness. MUSCULOSKELETAL: No clubbing, cyanosis, or edema. NEURO: Cranial nerves II to XII within normal limits. No focal or lateralizing signs. PSYCH: Alert and oriented to person, place and time. SKIN: Well-perfused good skin turgor. ASSESSMENT: 1. Mesenteric panniculitis 2. Abnormal computed tomography scan 3. Morbid obesity due to excess calories, BMI 52.3 4. Status post sleeve gastrectomy PLAN: 1. All of her recent care has been done at [facility]. She has an ongoing relationship with her physician at [facility] in the last few weeks. Recommend transfer to [facility] for continued treatment of her rare disease mesenteric panniculitis. 2. No surgical intervention. 3. Computed tomography scan was personally reviewed with findings consistent with mesenteric panniculitis 4. 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 History of Any Multi-Drug Resistant Organisms: None Reported Past Surgical History: Hysterectomy Additional Past Surgical History / Comment(s): 01-30-16 LAP SLEEVE GASTRECTOMY W /REPAIR OF HIATAL HERNIA Additional Past Anesthesia/Blood Transfusion Reaction / Comm: c/o itching with twilight Past Psychological History: Anxiety Smoking Status: Never smoker Past Alcohol Use History: None Reported Past Drug Use History: None Reported - Past Family History Father History Unknown: Yes Family Medical History: Congestive Heart Failure (CHF), Diabetes Mellitus, Hypertension Medications and Allergies Home Medications Medication Instructions Recorded Confirmed Type Escitalopram [Lexapro] 10 mg PO HS 11/07/15 04/02/18 History Ferrous Sulfate [Feosol] 325 mg PO DAILY 06/21/16 04/02/18 History Multivitamin [Multiple Vitamins] 1 tab PO DAILY 08/22/16 04/02/18 History Acetaminophen [Tylenol Arthritis] 1,300 mg PO Q12H PRN 04/02/18 04/02/18 History Benazepril [Lotensin] 10 mg PO HS 04/02/18 04/02/18 History Dicyclomine [Bentyl] 20 mg PO QID #15 tablet 04/02/18 Rx HYDROcodone/APAP 10-325MG [[place] 1 tab PO Q6H PRN 04/02/18 04/02/18 History 10-325] Ondansetron [Zofran] 4 mg PO Q8H PRN 04/02/18 04/02/18 History Ranitidine HCl [Zantac] 150 mg PO DAILY 04/02/18 04/02/18 History Allergies Allergy/AdvReac Type Severity Reaction Status Date / Time Sulfa (Sulfonamide Allergy Rash/Hives Verified 04/02/18 09:31 Antibiotics) and SOB Surgical - Exam Vital Signs Temp Pulse Resp BP Pulse Ox 98.7 F 96 26 H 129/79 94 L 04/02/18 02:04 04/02/18 02:04 04/02/18 02:04 04/02/18 02:04 04/02/18 02:04 Results - Labs 04/02/18 02:28 04/02/18 02:28 Abnormal Lab Results - Last 24 Hours (Table) 04/02/18 Range/Units 02:28 Glucose 121 H (74-99) mg/dL AST 67 H (14-36) U/L Diabetes panel 04/02/18 Range/Units 02:28 Sodium 140 (137-145) mmol/L Potassium 4.2 (3.5-5.1) mmol/L Chloride 107 (98-107) mmol/L Carbon Dioxide 25 (22-30) mmol/L BUN 15 (7-17) mg/dL Creatinine 0.66 (0.52-1.04) mg/dL Glucose 121 H (74-99) mg/dL Calcium 8.8 (8.4-10.2) mg/dL AST 67 H (14-36) U/L ALT 34 (9-52) U/L Alkaline Phosphatase 89 (38-126) U/L Total Protein 6.6 (6.3-8.2) g/dL Albumin 3.8 (3.5-5.0) g/dL Calcium panel 04/02/18 Range/Units 02:28 Calcium 8.8 (8.4-10.2) mg/dL Albumin 3.8 (3.5-5.0) g/dL Pituitary panel 04/02/18 Range/Units 02:28 Sodium 140 (137-145) mmol/L Potassium 4.2 (3.5-5.1) mmol/L Chloride 107 (98-107) mmol/L Carbon Dioxide 25 (22-30) mmol/L BUN 15 (7-17) mg/dL Creatinine 0.66 (0.52-1.04) mg/dL Glucose 121 H (74-99) mg/dL Calcium 8.8 (8.4-10.2) mg/dL Adrenal panel 04/02/18 Range/Units 02:28 Sodium 140 (137-145) mmol/L Potassium 4.2 (3.5-5.1) mmol/L Chloride 107 (98-107) mmol/L Carbon Dioxide 25 (22-30) mmol/L BUN 15 (7-17) mg/dL Creatinine 0.66 (0.52-1.04) mg/dL Glucose 121 H (74-99) mg/dL Calcium 8.8 (8.4-10.2) mg/dL Total Bilirubin 0.6 (0.2-1.3) mg/dL AST 67 H (14-36) U/L ALT 34 (9-52) U/L Alkaline Phosphatase 89 (38-126) U/L Total Protein 6.6 (6.3-8.2) g/dL Albumin 3.8 (3.5-5.0) g/dL - Imaging CT scan - abdomen: report reviewed, image reviewed CT scan - pelvis: report reviewed, image reviewed (Mesenteric inflammation noted. Gallbladder without inflammation) Assessment and Plan (1) Mesenteric panniculitis Current Visit: Yes Status: Acute Code(s): K65.4 - SCLEROSING MESENTERITIS SNOMED Code(s): 8857699719997515 (2) Abdominal pain Current Visit: Yes Status: Acute Code(s): R10.9 - UNSPECIFIED ABDOMINAL PAIN SNOMED Code(s): 77298890 (3) GERD (gastroesophageal reflux disease) Current Visit: No Status: Acute Code(s): K21.9 - GASTRO-ESOPHAGEAL REFLUX DISEASE WITHOUT ESOPHAGITIS SNOMED Code(s): 320704728 (4) Morbid obesity Current Visit: No Status: Acute Code(s): E66.01 - MORBID (SEVERE) OBESITY DUE TO EXCESS CALORIES SNOMED Code(s): 150740517
[2018-04-02 11:56] VITALS: RESP 16
[2018-04-02] MEDS: MORPHINE SULFATE 4 MG/ML SYRINGE IV PRN ×2 (14:33→23:42)
[2018-04-02] MEDS: SODIUM CHLORIDE 0.9% 1,000 ML IV SCH ×2 (17:03→21:27)
[2018-04-02] MEDS ORDERED: ESCITALOPRAM 10 MG TAB PO SCH (21:00)
[2018-04-02] MEDS ORDERED: LISINOPRIL 10 MG TAB PO SCH (21:00)
--- NOTE | 2018-04-02 22:49 | P.HPIM ---
History of Present Illness H&P Date: 04/02/18 Chief Complaint: Severe abdominal pain. This is a history and physical on a 47-year-old white female with history of mesenteric adenitis/panniculitis who has struggled in the last year with this problem. It seems to have been started postoperatively from a ga. The patient ended up getting treated at [facility] where she had good success with her symptoms taking Imuran however, side e of the medication from a chronic perspective were Not tolerated properly. The patient now has been evaluated and because of her intense pain is appropriately admitted for medical treatment. Surgical consult is also noted. 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 History of Any Multi-Drug Resistant Organisms: None Reported Past Surgical History: Hysterectomy Additional Past Surgical History / Comment(s): 01-30-16 LAP SLEEVE GASTRECTOMY W /REPAIR OF HIATAL HERNIA Additional Past Anesthesia/Blood Transfusion Reaction / Comment(s): c/o itching with twilight Past Psychological History: Anxiety Smoking Status: Never smoker Past Alcohol Use History: None Reported Past Drug Use History: None Reported - Past Family History Father History Unknown: Yes Family Medical History: Congestive Heart Failure (CHF), Diabetes Mellitus, Hypertension Medications and Allergies Home Medications Medication Instructions Recorded Confirmed Type Escitalopram [Lexapro] 10 mg PO HS 11/07/15 04/02/18 History Ferrous Sulfate [Feosol] 325 mg PO DAILY 06/21/16 04/02/18 History Multivitamin [Multiple Vitamins] 1 tab PO DAILY 08/22/16 04/02/18 History Acetaminophen [Tylenol Arthritis] 1,300 mg PO Q12H PRN 04/02/18 04/02/18 History Benazepril [Lotensin] 10 mg PO HS 04/02/18 04/02/18 History Dicyclomine [Bentyl] 20 mg PO QID #15 tablet 04/02/18 Rx HYDROcodone/APAP 10-325MG [[place] 1 tab PO Q6H PRN 04/02/18 04/02/18 History 10-325] Ondansetron [Zofran] 4 mg PO Q8H PRN 04/02/18 04/02/18 History Ranitidine HCl [Zantac] 150 mg PO DAILY 04/02/18 04/02/18 History Allergies Allergy/AdvReac Type Severity Reaction Status Date / Time Sulfa (Sulfonamide Allergy Rash/Hives Verified 04/02/18 09:31 Antibiotics) and SOB Physical Exam Vitals: Vital Signs Temp Pulse Pulse Resp BP BP Pulse Ox 04/02/18 14:40 98.2 F 75 16 103/67 92 L 04/02/18 11:00 97.7 F 66 16 120/72 97 04/02/18 08:54 97.9 F 60 18 108/93 100 04/02/18 08:52 60 18 108/93 100 04/02/18 08:41 97.7 F 62 14 120/79 96 04/02/18 06:42 97.9 F 70 17 141/79 96 04/02/18 06:00 77 18 130/84 97 04/02/18 03:47 77 17 123/67 97 04/02/18 03:06 18 04/02/18 03:00 73 18 118/66 99 04/02/18 02:04 98.7 F 96 26 H 129/79 94 L Intake and Output 04/02/18 04/02/18 04/02/18 06:59 14:59 22:59 Other: Weight 129.727 kg 129.727 kg - Constitutional General appearance: cooperative, no acute distress - EENT Eyes: abnormal pupil - Neck Neck: no lymphadenopathy - Cardiovascular Rhythm: regular Heart sounds: normal: S1, S2 Abnormal Heart Sounds: no S3 Gallop - Gastrointestinal General gastrointestinal: soft, tenderness - Integumentary Integumentary: no cellulitis - Psychiatric Psychiatric: A&O x's 3, no appropriate affect Results CBC & Chem 7: 04/02/18 02:28 04/02/18 02:28 Labs: Abnormal Lab Results - Last 24 Hours (Table) 04/02/18 Range/Units 02:28 Glucose 121 H (74-99) mg/dL AST 67 H (14-36) U/L Thrombosis Risk Factor Assmnt - Choose All That Apply Any of the Below Risk Factors Present?: Yes Each Factor Represents 1 point: Age 41-60 years, Obesity (BMI >25) Other Risk Factors: No Other congenital or acquired thrombophilia - If yes, enter type in comment: No Thrombosis Risk Factor Assessment Total Risk Factor Score: 2 Thrombosis Risk Factor Assessment Level: Low Risk Assessment and Plan (1) Essential (primary) hypertension Current Visit: Yes Status: Acute Code(s): I10 - ESSENTIAL (PRIMARY) HYPERTENSION SNOMED Code(s): 07505535 (2) Mesenteric panniculitis Current Visit: Yes Status: Acute Code(s): K65.4 - SCLEROSING MESENTERITIS SNOMED Code(s): 5778670017182092 (3) GERD (gastroesophageal reflux disease) Current Visit: No Status: Acute Code(s): K21.9 - GASTRO-ESOPHAGEAL REFLUX DISEASE WITHOUT ESOPHAGITIS SNOMED Code(s): 562226401 Plan: Appreciate surgical input. Pain control will be of utmost importance. Watch vital signs appropriately. Slowly increase diet. If the patient does not improve, consideration for transfer to [facility] will be entertained. Hopefully we can just treat her symptoms and then get her transferred more as an outpatient. He has quite a unusual and rare diagnoses that we will most likely need tertiary care.
[2018-04-03 01:33] VITALS: PULSE 76; TEMP 98.2
[2018-04-03 07:44] VITALS: BP 117/73
[2018-04-03] MEDS: SODIUM CHLORIDE 0.9% 1,000 ML IV SCH (07:52)
[2018-04-03] MEDS: FERROUS SULFATE 325 MG TAB PO SCH (07:52)
[2018-04-03] MEDS: FAMOTIDINE 20 MG TAB PO SCH (07:52)
[2018-04-03] MEDS ORDERED: methylPREDNISolone SOD SUCCI 125 MG/2 ML VIAL IV STA (08:09)
--- NOTE | 2018-04-03 08:11 | P.DS ---
Providers Date of admission: 04/02/18 08:30 Attending physician: Ezekiel Friend Consults: 04/02/18 08:20 Consult Physician Routine Consulting Provider: Eder Guillen Consult Reason/Comments: abdominal pain Do you want consulting provider notified?: Yes Primary care physician: Ezekiel Friend - Discharge Diagnosis(es) (1) Essential (primary) hypertension Current Visit: Yes Status: Acute (2) Mesenteric panniculitis Current Visit: Yes Status: Acute (3) GERD (gastroesophageal reflux disease) Current Visit: No Status: Acute Hospital Course: This is a 47-year-old white female who has underlying history of mesenteric panniculitis/adenitis since having gastric sleeve. The patient has been admitted for appropriate pain control. The patient is now seemingly tolerating diet and will be discharged in stable condition to follow-up with her physician at [facility] for appropriate treatment. She's had history of use of Imuran which is controlled the symptoms but she's not able to tolerate that produc for extended periods time. Given the severity of her disease, she will follow-up with her specialist physician at tertiary care center. Follow-up with me in 3-5 days.t Patient Condition at Discharge: Fair Plan - Discharge Summary Discharge Rx Participant: No New Discharge Prescriptions: New Dicyclomine [Bentyl] 20 mg PO QID #15 tablet Morphine Sulfate Ir [MSIR] 15 mg PO Q6HR PRN 3 Days #12 tab PRN Reason: Pain Continue Escitalopram [Lexapro] 10 mg PO HS Ferrous Sulfate [Iron (65 MG Elemental)] 325 mg PO DAILY Multivitamin [Multiple Vitamins] 1 tab PO DAILY Ranitidine HCl [Zantac] 150 mg PO DAILY Ondansetron [Zofran] 4 mg PO Q8H PRN PRN Reason: Nausea HYDROcodone/APAP 10-325MG [[place] 10-325] 1 tab PO Q6H PRN PRN Reason: Pain Acetaminophen [Tylenol Arthritis] 1,300 mg PO Q12H PRN PRN Reason: Pain Benazepril [Lotensin] 10 mg PO HS Discharge Medication List Escitalopram [Lexapro] 10 mg PO HS 11/07/15 [History] Ferrous Sulfate [Iron (65 MG Elemental)] 325 mg PO DAILY 06/21/16 [History] Multivitamin [Multiple Vitamins] 1 tab PO DAILY 08/22/16 [History] Acetaminophen [Tylenol Arthritis] 1,300 mg PO Q12H PRN 04/02/18 [History] Benazepril [Lotensin] 10 mg PO HS 04/02/18 [History] Dicyclomine [Bentyl] 20 mg PO QID #15 tablet 04/02/18 [Rx] HYDROcodone/APAP 10-325MG [[place] 10-325] 1 tab PO Q6H PRN 04/02/18 [History] Ondansetron [Zofran] 4 mg PO Q8H PRN 04/02/18 [History] Ranitidine HCl [Zantac] 150 mg PO DAILY 04/02/18 [History] Morphine Sulfate Ir [MSIR] 15 mg PO Q6HR PRN 3 Days #12 tab 04/03/18 [Rx] Follow up Appointment(s)/Referral(s): Bib Bill MD [STAFF PHYSICIAN] - 1-2 days Ezekiel Friend MD [Primary Care Provider] - 3 Days Patient Instructions/Handouts: Abdominal Pain (ED) Discharge Disposition: HOME SELF-CARE
[2018-04-03 09:14] LABS: HCT 40.2 % (34.0-46.0); HGB 12.6 gm/dL (11.4-16.0); MCH 29.7 pg (25.0-35.0); MCHC 31.4 g/dL (31.0-37.0); MCV 94.5 fL (80.0-100.0); Mean Platelet Volume 6.6; Platelet Count 289 k/uL (150-450); RBC 4.26 m/uL (3.80-5.40); RDW 11.9 % (11.5-15.5)
[2018-04-03 09:32] LABS: ALT 44 U/L (9-52); AST 30 U/L (14-36); Albumin 3.4 g/dL (3.5-5.0); Alkaline Phosphatase 70 U/L (38-126); Anion Gap 4 mmol/L; Blood Urea Nitrogen 10 mg/dL (7-17); Calcium 8.5 mg/dL (8.4-10.2); Carbon Dioxide 28 mmol/L (22-30); Chloride 106 mmol/L (98-107); Glucose 82 mg/dL (74-99); Potassium 4.2 mmol/L (3.5-5.1); Sodium 138 mmol/L (137-145); Total Bilirubin 0.8 mg/dL (0.2-1.3)
== END 2018-04-03 10:22 | disposition home or self-care (01) ==
LOC: EC 02:01 → 4SSUR 08:30
PROVIDERS: ADMIT Family Medicine; ATTEND Family Medicine
DX: K65.4 Sclerosing mesenteritis (principal); I10 Essential (primary) hypertension; K21.9 Gastro-esophageal reflux disease without esophagitis; Z98.84 Bariatric surgery status; E66.01 Morbid (severe) obesity due to excess calories; Z68.43 Body mass index [BMI] 50.0-59.9, adult; Z87.01 Personal history of pneumonia (recurrent); G47.30 Sleep apnea, unspecified; Z99.89 Dependence on other enabling machines and devices; F41.9 Anxiety disorder, unspecified; Z82.49 Family history of ischemic heart disease and other diseases of the circulatory system; Z83.3 Family history of diabetes mellitus; Z90.710 Acquired absence of both cervix and uterus; Z79.899 Other long term (current) drug therapy; Z79.52 Long term (current) use of systemic steroids; Z88.2 Allergy status to sulfonamides
CPT/HCPCS: 96375 ×3; 96376 ×3; 96361 ×2; 96374 ×2; 99285 ×2; 99284; 36415; 80053 ×2; 82150; 83690; 85025; 85027; 81003; 74176; G0378 ×2; J2270; J1200; J2930; J2405

== ENCOUNTER → 2020-10-24 | Outpatient (CLI) | payer BC | END | disposition home or self-care (01) | LOC: LABWHC1 10:22 | PROVIDERS: ATTEND Family Medicine | DX: Z01.84 Encounter for antibody response examination (principal) | CPT/HCPCS: 36415; 86769 ==

== ENCOUNTER 2021-08-13 08:53 | Emergency (ER) | payer BC, MEDICARE ==
[2021-08-13 08:58] VITALS: TEMP 97.7
[2021-08-13] MEDS ORDERED: ONDANSETRON 4 MG/2 ML VIAL IVP STA (09:23)
[2021-08-13] MEDS ORDERED: KETOROLAC 15 MG/ML 1 ML VIAL IVP STA ×2 (09:23→11:00)
[2021-08-13] MEDS ORDERED: SODIUM CHLORIDE 0.9% 1,000 ML IV STA (09:23)
--- NOTE | 2021-08-13 09:25 | ED ---
General Adult HPI - General Chief complaint: Urogenital Stated complaint: Abd Pain/Discolored Urine Time Seen by Provider: 08/13/21 09:10 Source: patient, RN notes reviewed, old records reviewed Mode of arrival: ambulatory Limitations: no limitations - History of Present Illness Initial comments: Patient is a 51-year-old female with history of hypertension, sleep apnea, mesenteric pannticulitis, presenting to the emergency Department with complaints of dysuria and left-sided abdominal pain that started yesterday. Patient states she noticed left back and left sided abdominal pain yesterday into today, she's also been having dysuria. Yesterday her urine seemed to be more pink tinged. Currently she is rating her pain about 8/10. Mostly in her left back, with radiation towards the left groin. She denies history of kidney stones. She admits to history of gastric sleeve, hysterectomy, no other abdominal surgeries. She denies any fevers or chills, no chest pain or shortness of breath. She is having smelled nausea, no vomiting. A few days ago she did have some diarrhea but that is since resolved. She is no further complaints. Her vital signs are stable upon arrival. - Related Data Home Medications Medication Instructions Recorded Confirmed Escitalopram [Lexapro] 10 mg PO HS 11/07/15 04/02/18 Ferrous Sulfate [Iron (65 MG 325 mg PO DAILY 06/21/16 04/02/18 Elemental)] Multivitamin [Multiple Vitamins] 1 tab PO DAILY 08/22/16 04/02/18 Acetaminophen [Tylenol Arthritis] 1,300 mg PO Q12H PRN 04/02/18 04/02/18 Benazepril [Lotensin] 10 mg PO HS 04/02/18 04/02/18 HYDROcodone/APAP 10-325MG [[place] 1 tab PO Q6H PRN 04/02/18 04/02/18 10-325] Ondansetron [Zofran] 4 mg PO Q8H PRN 04/02/18 04/02/18 Ranitidine HCl [Zantac] 150 mg PO DAILY 04/02/18 04/02/18 Previous Rx's Medication Instructions Recorded Dicyclomine [Bentyl] 20 mg PO QID #15 tablet 04/02/18 Morphine Sulfate Ir [MSIR] 15 mg PO Q6HR PRN 3 Days #12 tab 04/03/18 HYDROcodone/APAP 10-325MG [[place] 1 tab PO Q6HR PRN 3 Days #12 tab 08/13/21 10-325] Ondansetron Odt [Zofran Odt] 4 mg PO Q8HR PRN #10 tab 08/13/21 Allergies Allergy/AdvReac Type Severity Reaction Status Date / Time Sulfa (Sulfonamide Allergy Rash/Hives Verified 08/13/21 08:58 Antibiotics) and SOB Review of Systems ROS Statement: Those systems with pertinent positive or pertinent negative responses have been documented in the HPI. ROS Other: All systems not noted in ROS Statement are negative. 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 History of Any Multi-Drug Resistant Organisms: None Reported Past Surgical History: Hysterectomy Additional Past Surgical History / Comment(s): 01-30-16 LAP SLEEVE GASTRECTOMY W/REPAIR OF HIATAL HERNIA Additional Past Anesthesia/Blood Transfusion Reaction / Comment(s): c/o itching with twilight Past Psychological History: Anxiety Smoking Status: Never smoker Past Alcohol Use History: None Reported Past Drug Use History: None Reported - Past Family History Father History Unknown: Yes Family Medical History: Congestive Heart Failure (CHF), Diabetes Mellitus, Hypertension General Exam - General Exam Comments Initial Comments: GENERAL: Patient is well-developed and well-nourished. Patient is nontoxic and in mild acute distress. HEAD: Atraumatic, normocephalic. EYES: Pupils equal round and reactive to light, extraocular movements intact, sclera anicteric, conjunctiva are normal. Eyelids were unremarkable. ENT: Nares patent, oropharynx clear without exudates. Moist mucous membranes. NECK: Normal range of motion, supple without lymphadenopathy or JVD. LUNGS: Unlabored respirations. Breath sounds clear to auscultation bilaterally and equal. No wheezes rales or rhonchi. HEART: Regular rate and rhythm without murmurs, rubs or gallops. ABDOMEN: Soft, tender to palpation along the left side of the abdomen, left flank, normoactive bowel sounds. No guarding, no rebound. No masses appreciated. MUSCULOSKELETAL: Normal extremities with adequate strength and normal range of motion, no pitting or edema. No clubbing or cyanosis. NEUROLOGICAL: Patient is alert and oriented x 3. Normal speech, normal gait. PSYCH: Normal mood, normal affect. SKIN: Warm, Dry, normal turgor, no rashes or lesions noted. Limitations: no limitations Course Vital Signs 08/13/21 08/13/21 08:56 10:01 Temperature 97.7 F Pulse Rate 94 69 Respiratory 16 14 Rate Blood Pressure 137/82 120/69 O2 Sat by Pulse 97 98 Oximetry Medical Decision Making - Medical Decision Making Patient is a 51-year-old female here with left-sided abdominal pain, dysuria, hematuria since yesterday. Laboratory studies are unremarkable, urine shows moderate amount of blood. CT of the abdomen shows a 2 mm stone in the proximal left ureter just beyond the left UVJ. Mild obstructive uropathy. Other nonspecific changes. Patient received fluids, Zofran and Toradol and has improvement in her discomfort. I discussed these findings with her. Patient will be discharged home with [place] as she cannot take Toradol secondary to gastric sleeve. As well as Zofran as needed. I will give her urology follow-up. Patient is agreeable to this. Return parameters were discussed. She stable for discharge. - Lab Data Result diagrams: 08/13/21 09:54 08/13/21 09:54 Lab Results 08/13/21 08/13/21 08/13/21 Range/Units 09:54 09:54 09:54 WBC 5.0 (3.8-10.6) k/uL RBC 3.91 (3.80-5.40) m/uL Hgb 12.1 (11.4-16.0) gm/dL Hct 36.9 (34.0-46.0) % MCV 94.5 (80.0-100.0) fL MCH 31.0 (25.0-35.0) pg MCHC 32.8 (31.0-37.0) g/dL RDW 12.2 (11.5-15.5) % Plt Count 320 (150-450) k/uL MPV 7.0 Neutrophils % 57 % Lymphocytes % 30 % Monocytes % 3 % Eosinophils % 7 % Basophils % 1 % Neutrophils # 2.9 (1.3-7.7) k/uL Lymphocytes # 1.5 (1.0-4.8) k/uL Monocytes # 0.2 (0-1.0) k/uL Eosinophils # 0.3 (0-0.7) k/uL Basophils # 0.0 (0-0.2) k/uL Sodium 138 (137-145) mmol/L Potassium 4.3 (3.5-5.1) mmol/L Chloride 106 (98-107) mmol/L Carbon Dioxide 24 (22-30) mmol/L Anion Gap 8 mmol/L BUN 12 (7-17) mg/dL Creatinine 0.68 (0.52-1.04) mg/dL Est GFR (CKD-EPI)AfAm >90 (>60 ml/min/1.73 sqM) Est GFR (CKD-EPI)NonAf >90 (>60 ml/min/1.73 sqM) Glucose 86 (74-99) mg/dL Plasma Lactic Acid Berry (0.7-2.0) mmol/L Calcium 8.5 (8.4-10.2) mg/dL Total Bilirubin 0.4 (0.2-1.3) mg/dL AST 22 (14-36) U/L ALT 13 (4-34) U/L Alkaline Phosphatase 71 (38-126) U/L Total Protein 6.3 (6.3-8.2) g/dL Albumin 3.5 (3.5-5.0) g/dL Lipase 45 (23-300) U/L Urine Color Yellow Urine Appearance Cloudy H (Clear) Urine pH 5.5 (5.0-8.0) Ur Specific [place] 1.024 (1.001-1.035) Urine Protein Trace H (Negative) Urine Glucose (UA) Negative (Negative) Urine Ketones Negative (Negative) Urine Blood Moderate H (Negative) Urine Nitrite Negative (Negative) Urine Bilirubin Negative (Negative) Urine Urobilinogen <2.0 (<2.0) mg/dL Ur Leukocyte Esterase Negative (Negative) Urine RBC 138 H (0-5) /hpf Urine WBC 2 (0-5) /hpf Ur Squamous Epith Cells 21 H (0-4) /hpf Urine Bacteria Rare H (None) /hpf Urine Mucus Many H (None) /hpf 08/13/21 Range/Units 09:54 WBC (3.8-10.6) k/uL RBC (3.80-5.40) m/uL Hgb (11.4-16.0) gm/dL Hct (34.0-46.0) % MCV (80.0-100.0) fL MCH (25.0-35.0) pg MCHC (31.0-37.0) g/dL RDW (11.5-15.5) % Plt Count (150-450) k/uL MPV Neutrophils % % Lymphocytes % % Monocytes % % Eosinophils % % Basophils % % Neutrophils # (1.3-7.7) k/uL Lymphocytes # (1.0-4.8) k/uL Monocytes # (0-1.0) k/uL Eosinophils # (0-0.7) k/uL Basophils # (0-0.2) k/uL Sodium (137-145) mmol/L Potassium (3.5-5.1) mmol/L Chloride (98-107) mmol/L Carbon Dioxide (22-30) mmol/L Anion Gap mmol/L BUN (7-17) mg/dL Creatinine (0.52-1.04) mg/dL Est GFR (CKD-EPI)AfAm (>60 ml/min/1.73 sqM) Est GFR (CKD-EPI)NonAf (>60 ml/min/1.73 sqM) Glucose (74-99) mg/dL Plasma Lactic Acid Berry 1.5 (0.7-2.0) mmol/L Calcium (8.4-10.2) mg/dL Total Bilirubin (0.2-1.3) mg/dL AST (14-36) U/L ALT (4-34) U/L Alkaline Phosphatase (38-126) U/L Total Protein (6.3-8.2) g/dL Albumin (3.5-5.0) g/dL Lipase (23-300) U/L Urine Color Urine Appearance (Clear) Urine pH (5.0-8.0) Ur Specific [place] (1.001-1.035) Urine Protein (Negative) Urine Glucose (UA) (Negative) Urine Ketones (Negative) Urine Blood (Negative) Urine Nitrite (Negative) Urine Bilirubin (Negative) Urine Urobilinogen (<2.0) mg/dL Ur Leukocyte Esterase (Negative) Urine RBC (0-5) /hpf Urine WBC (0-5) /hpf Ur Squamous Epith Cells (0-4) /hpf Urine Bacteria (None) /hpf Urine Mucus (None) /hpf Disposition Clinical Impression: Left ureteral stone Disposition: HOME SELF-CARE Condition: Stable Instructions (If sedation given, give patient instructions): Kidney Stones (ED) Additional Instructions: Please return to the Emergency Department if symptoms worsen or any other concerns. Increase fluids as discussed. Take pain medication as needed for severe pain, Zofran for any nausea. Follow-up with urology. Prescriptions: HYDROcodone/APAP 10-325MG [[place] 10-325] 1 tab PO Q6HR PRN 3 Days #12 tab PRN Reason: Pain Ondansetron Odt [Zofran Odt] 4 mg PO Q8HR PRN #10 tab PRN Reason: Nausea Is patient prescribed a controlled substance at d/c from ED?: Yes When asked, does pt state using other controlled substances?: Yes If prescribed controlled substance>3 days was MAPS reviewed?: Prescribed <3 Days If opioid is for acute pain is fill amount 7 days or less?: Yes If Rx opioid, was Start Talking consent form obtained?: Yes Referrals: Ezekiel Friend MD [Primary Care Provider] - 1-2 days Triston Azevedo MD [STAFF PHYSICIAN] - 1-2 days Time of Disposition: 11:45 Decision Time: 11:46
[2021-08-13 10:02] VITALS: BP 120/69; PULSE 69; RESP 14
[2021-08-13 10:04] LABS: Basophils % (A) 1 %; Eosinophils # (A) 0.3 k/uL (0-0.7); Eosinophils % (A) 7 %; HCT 36.9 % (34.0-46.0); HGB 12.1 gm/dL (11.4-16.0); Lymphocytes # (A) 1.5 k/uL (1.0-4.8); Lymphocytes % (A) 30 %; MCHC 32.8 g/dL (31.0-37.0); MCV 94.5 fL (80.0-100.0); Monocytes # (A) 0.2 k/uL (0-1.0); Monocytes % (A) 3 %; Neutrophils # (A) 2.9 k/uL (1.3-7.7); Neutrophils % (A) 57 %; Platelet Count 320 k/uL (150-450); RBC 3.91 m/uL (3.80-5.40); RDW 12.2 % (11.5-15.5)
[2021-08-13 10:13] LABS: ALT 13 U/L (4-34); AST 22 U/L (14-36); African American GFR (CKD) >90 (>60 ml/min/1.73 sqM); Albumin 3.5 g/dL (3.5-5.0); Alkaline Phosphatase 71 U/L (38-126); Anion Gap 8 mmol/L; Blood Urea Nitrogen 12 mg/dL (7-17); Calcium 8.5 mg/dL (8.4-10.2); Carbon Dioxide 24 mmol/L (22-30); Chloride 106 mmol/L (98-107); Glucose 86 mg/dL (74-99); Lipase 45 U/L (23-300); Non-African American GFR(CKD) >90 (>60 ml/min/1.73 sqM); Potassium 4.3 mmol/L (3.5-5.1); Sodium 138 mmol/L (137-145); Total Bilirubin 0.4 mg/dL (0.2-1.3); Total Protein 6.3 g/dL (6.3-8.2)
[2021-08-13 10:17] LABS: Appearance,Urine Cloudy (Clear); Bacteria,Urine Rare /hpf; Bilirubin,Urine Negative (Negative); Blood,Urine Moderate (Negative); Color,Urine Yellow; Glucose,Urine (UA) Negative (Negative); Ketones,Urine Negative (Negative); Leukocyte Esterase,Urine Negative (Negative); Mucus,Urine Many /hpf; Nitrite,Urine Negative (Negative); PH, Urine 5.5 (5.0-8.0); Protein,Urine Trace (Negative); RBC,Urine 138 /hpf (0-5); Specific Gravity,Urine 1.024 (1.001-1.035); Squamous Epithelial Cell,Urine 21 /hpf (0-4); Urobilinogen,Urine <2.0 mg/dL (<2.0); WBC,Urine 2 /hpf (0-5)
--- NOTE | 2021-08-13 10:23 | CT ---
EXAMINATION TYPE: CT abdomen pelvis wo con DATE OF EXAM: 08/13/2021 COMPARISON: 04/02/2018 HISTORY: 71-year-old female left flank pain Left flank pain CT DLP: 2198.9 mGycm. Automated exposure control for dose reduction was used. TECHNIQUE: Contiguous axial scanning of the abdomen and pelvis without IV contrast. Coronal and sagit tony reconstructions performed. FINDINGS: Heart normal size without pericardial effusion. Lung bases clear without pleural effusion. Mild circumferential wall thickening distal esophagus. There is small hiatal hernia as well and posts urgical changes of sleeve gastrectomy. Liver mildly enlarged at 19.8 cm versus 19.0 cm on 04/02/2018. Gallbladder, adrenal glands, spleen, and pancreas within normal limits. Right kidney is slightly malrotated. A 3 mm calcification midpole right kidney is nonobstructive. There is mild asymmetric fullness left renal collecting system and a tiny 4 x 2 mm calculus proximal left ureter just beyond the UPJ on axial image 79 and coronal image 49. Redemonstrated [place] mesentery with some associated nonenlarged and borderline sized mesenter ic lymph nodes measuring up to 6 mm, unchanged from 04/02/2018. No retroperitoneal lymphadenopathy. Tiny fatty umbilical hernia measuring 1.7 cm wide. Appendix not seen. No inflammatory changes right lower quadrant. Mild scattered stool. Mild scattered left-sided colonic diverticulosis. No pericolonic inflammatory c hange. Bladder is collapsed. Uterus surgically absent. Pelvic phleboliths. Both ovaries are visualized. Ther e is a 2.3 cm cystic lesion of the right ovary versus 1.3 cm on 04/20/2018. Prominent but nonenlarged bilateral inguinal lymph nodes measure up to 1.0 cm, probably reactive/post inflammatory. Bones: Moderate degenerative change in both hips. Vascular disease. Bilateral L5 pars defects with gr mal 2 anterolisthesis L5-S1 moderate degenerative disc disease. This causes at least moderate bilater al neural foraminal stenosis at this level. IMPRESSION: 1. A 4 x 2 mm stone within the proximal left ureter just beyond the left UVJ. Mild obstructive uropa thy. 2. Status post sleeve gastrectomy. There is a small hiatal hernia noted. Mild circumferential wall t hickening of the distal esophagus could reflect esophagitis. Clinically correlate. 3. [place]ty mesentery with associated nonenlarged and borderline sized mesenteric lymph nodes, unchanged back to 04/02/2018. This suggests chronic mesenteric panniculitis. 4. Scattered mild left-sided clonic diverticulosis without acute diverticulitis. 5. A 2.3 cm cyst of the right ovary versus 1.3 cm in 2019. Pelvic ultrasound to reassess and better characterize in 6 months. 6. Bilateral L5 pars defects with grade 2 anterolisthesis L5-S1.
== END 2021-08-13 12:05 | disposition home or self-care (01) ==
LOC: EC 08:53
DX: N20.1 Calculus of ureter (principal); I10 Essential (primary) hypertension; Z88.2 Allergy status to sulfonamides
CPT/HCPCS: 36415; 80053; 83605; 83690; 85025; 81001; 74176; 99284; 96374; 96375; 96361; J2405; J1885

== ENCOUNTER 2022-02-01 20:56 | Emergency (ER) | payer MEDICARE ==
[2022-02-01 21:50] LABS: Basophils % (A) 0 %; Eosinophils # (A) 0.2 k/uL (0-0.7); Eosinophils % (A) 2 %; HCT 41.3 % (34.0-46.0); HGB 13.8 gm/dL (11.4-16.0); Lymphocytes # (A) 2.3 k/uL (1.0-4.8); Lymphocytes % (A) 33 %; MCH 31.3 pg (25.0-35.0); MCHC 33.3 g/dL (31.0-37.0); Mean Platelet Volume 7.5; Monocytes # (A) 0.2 k/uL (0-1.0); Monocytes % (A) 3 %; Neutrophils # (A) 4.1 k/uL (1.3-7.7); Neutrophils % (A) 60 %; Platelet Count 327 k/uL (150-450); RDW 12.1 % (11.5-15.5); WBC 6.8 k/uL (3.8-10.6)
[2022-02-01 21:57] LABS: Partial Thromboplastin Time 28.9 sec (22.0-30.0); Prothrombin Time 20.6 sec (9.0-12.0)
--- NOTE | 2022-02-01 21:59 | XR ---
EXAMINATION TYPE: XR chest 2V DATE OF EXAM: 02/01/2022 COMPARISON: 10/13/2014 HISTORY: Chest pain TECHNIQUE: FINDINGS: Heart and mediastinum are normal. Lungs are clear. Diaphragm is normal. Bony thorax appears normal. IMPRESSION: Normal chest. No change.
[2022-02-01 22:01] LABS: ALT 28 U/L (4-34); AST 36 U/L (14-36); African American GFR (CKD) >90 (>60 ml/min/1.73 sqM); Albumin 3.9 g/dL (3.5-5.0); Alkaline Phosphatase 110 U/L (38-126); Anion Gap 10 mmol/L; Blood Urea Nitrogen 17 mg/dL (7-17); Calcium 8.8 mg/dL (8.4-10.2); Carbon Dioxide 29 mmol/L (22-30); Chloride 102 mmol/L (98-107); Glucose 98 mg/dL (74-99); Non-African American GFR(CKD) >90 (>60 ml/min/1.73 sqM); Potassium 3.9 mmol/L (3.5-5.1); Sodium 141 mmol/L (137-145); Total Bilirubin 0.3 mg/dL (0.2-1.3); Total Protein 6.5 g/dL (6.3-8.2)
[2022-02-02 00:44] LABS: INR 0.9 (<1.2); Prothrombin Time 10.4 sec (9.0-12.0)
--- NOTE | 2022-02-02 00:55 | ED ---
General Adult HPI - General Chief complaint: Chest Pain Stated complaint: Covid +,Chest Pain Time Seen by Provider: 02/01/22 23:50 Source: patient, RN notes reviewed, old records reviewed Mode of arrival: wheelchair - History of Present Illness Initial comments: 51-year-old female diagnosed with coronavirus on January 29 presenting with a central chest tightness. No prior history of DVT or PE, no history of CAD. Patient had experienced upper respiratory symptoms for proximally one week prior to this and did test positive for coronavirus. She states that her respiratory symptoms have been improving. She developed chest tightness within the past one day. No associated diaphoresis. Patient did have nausea and vomiting. - Related Data Home Medications Medication Instructions Recorded Confirmed Escitalopram [Lexapro] 10 mg PO HS 11/07/15 04/02/18 Ferrous Sulfate [Iron (65 MG 325 mg PO DAILY 06/21/16 04/02/18 Elemental)] Multivitamin [Multiple Vitamins] 1 tab PO DAILY 08/22/16 04/02/18 Acetaminophen [Tylenol Arthritis] 1,300 mg PO Q12H PRN 04/02/18 04/02/18 Benazepril [Lotensin] 10 mg PO HS 04/02/18 04/02/18 HYDROcodone/APAP 10-325MG [[place] 1 tab PO Q6H PRN 04/02/18 04/02/18 10-325] Ondansetron [Zofran] 4 mg PO Q8H PRN 04/02/18 04/02/18 Ranitidine HCl [Zantac] 150 mg PO DAILY 04/02/18 04/02/18 Previous Rx's Medication Instructions Recorded Dicyclomine [Bentyl] 20 mg PO QID #15 tablet 04/02/18 Morphine Sulfate Ir [MSIR] 15 mg PO Q6HR PRN 3 Days #12 tab 04/03/18 HYDROcodone/APAP 10-325MG [[place] 1 tab PO Q6HR PRN 3 Days #12 tab 08/13/21 10-325] Ondansetron Odt [Zofran Odt] 4 mg PO Q8HR PRN #10 tab 08/13/21 Allergies Allergy/AdvReac Type Severity Reaction Status Date / Time Sulfa (Sulfonamide Allergy Rash/Hives Verified 02/01/22 21:04 Antibiotics) and SOB Review of Systems ROS Statement: Those systems with pertinent positive or pertinent negative responses have been documented in the HPI. ROS Other: All systems not noted in ROS Statement are negative. 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 History of Any Multi-Drug Resistant Organisms: None Reported Past Surgical History: Hysterectomy Additional Past Surgical History / Comment(s): 01-30-16 LAP SLEEVE GASTRECTOMY W/REPAIR OF HIATAL HERNIA Additional Past Anesthesia/Blood Transfusion Reaction / Comment(s): c/o itching with twilight Past Psychological History: Anxiety Smoking Status: Never smoker Past Alcohol Use History: None Reported Past Drug Use History: None Reported - Past Family History Father History Unknown: Yes Family Medical History: Congestive Heart Failure (CHF), Diabetes Mellitus, Hypertension General Exam General appearance: alert, in no apparent distress Head exam: Present: atraumatic, normocephalic Eye exam: Present: normal appearance, PERRL ENT exam: Present: normal exam Neck exam: Present: normal inspection. Absent: tenderness, meningismus Respiratory exam: Present: normal lung sounds bilaterally. Absent: respiratory distress, wheezes, rales, rhonchi Cardiovascular Exam: Present: regular rate, normal rhythm GI/Abdominal exam: Present: soft. Absent: distended, tenderness, guarding, rebound Extremities exam: Present: normal inspection. Absent: normal capillary refill Neurological exam: Present: alert, oriented X3, CN II-XII intact. Absent: motor sensory deficit Psychiatric exam: Present: normal affect, normal mood Skin exam: Present: warm, dry, intact. Absent: cyanosis, diaphoretic Course Vital Signs 02/01/22 21:01 Temperature 97.7 F Pulse Rate 114 H Respiratory 18 Rate Blood Pressure 107/64 O2 Sat by Pulse 96 Oximetry EKG Findings - EKG Comments: EKG Findings:: EKG: Sinus tachycardia, rate of 105 low-voltage, VT interval 151, QRS duration 102, QTC 420 - EKG Results: EKG: interpreted by JUANA Medical Decision Making - Medical Decision Making 51-year-old female with chest pressure, recent diagnosis of coronavirus. Patient well-appearing. Mildly tachycardic. Lungs are clear to auscultation. EKG is low-voltage but there is no ST segment elevation. Sinus mechanism. Normal CBC, normal CMP, negative d-dimer, negative troponin 2. Patient reassured. She will follow with her primary care physician. Return parameters discussed at length. - Lab Data Result diagrams: 02/01/22 21:26 02/01/22 21:26 Lab Results 02/01/22 02/01/22 02/01/22 Range/Units 21:26 21:26 21:26 WBC 6.8 (3.8-10.6) k/uL RBC 4.40 (3.80-5.40) m/uL Hgb 13.8 (11.4-16.0) gm/dL Hct 41.3 (34.0-46.0) % MCV 94.0 (80.0-100.0) fL MCH 31.3 (25.0-35.0) pg MCHC 33.3 (31.0-37.0) g/dL RDW 12.1 (11.5-15.5) % Plt Count 327 (150-450) k/uL MPV 7.5 Neutrophils % 60 % Lymphocytes % 33 % Monocytes % 3 % Eosinophils % 2 % Basophils % 0 % Neutrophils # 4.1 (1.3-7.7) k/uL Lymphocytes # 2.3 (1.0-4.8) k/uL Monocytes # 0.2 (0-1.0) k/uL Eosinophils # 0.2 (0-0.7) k/uL Basophils # 0.0 (0-0.2) k/uL PT 20.6 H (9.0-12.0) sec INR 2.0 H (<1.2) APTT 28.9 (22.0-30.0) sec D-Dimer (<0.60) mg/L FEU Sodium 141 (137-145) mmol/L Potassium 3.9 (3.5-5.1) mmol/L Chloride 102 (98-107) mmol/L Carbon Dioxide 29 (22-30) mmol/L Anion Gap 10 mmol/L BUN 17 (7-17) mg/dL Creatinine 0.74 (0.52-1.04) mg/dL Est GFR (CKD-EPI)AfAm >90 (>60 ml/min/1.73 sqM) Est GFR (CKD-EPI)NonAf >90 (>60 ml/min/1.73 sqM) Glucose 98 (74-99) mg/dL Calcium 8.8 (8.4-10.2) mg/dL Magnesium 2.0 (1.6-2.3) mg/dL Total Bilirubin 0.3 (0.2-1.3) mg/dL AST 36 (14-36) U/L ALT 28 (4-34) U/L Alkaline Phosphatase 110 (38-126) U/L Troponin I (0.000-0.034) ng/mL Total Protein 6.5 (6.3-8.2) g/dL Albumin 3.9 (3.5-5.0) g/dL 02/01/22 02/02/22 Range/Units 21:26 00:21 WBC (3.8-10.6) k/uL RBC (3.80-5.40) m/uL Hgb (11.4-16.0) gm/dL Hct (34.0-46.0) % MCV (80.0-100.0) fL MCH (25.0-35.0) pg MCHC (31.0-37.0) g/dL RDW (11.5-15.5) % Plt Count (150-450) k/uL MPV Neutrophils % % Lymphocytes % % Monocytes % % Eosinophils % % Basophils % % Neutrophils # (1.3-7.7) k/uL Lymphocytes # (1.0-4.8) k/uL Monocytes # (0-1.0) k/uL Eosinophils # (0-0.7) k/uL Basophils # (0-0.2) k/uL PT 10.4 (9.0-12.0) sec INR 0.9 (<1.2) APTT (22.0-30.0) sec D-Dimer 0.21 (<0.60) mg/L FEU Sodium (137-145) mmol/L Potassium (3.5-5.1) mmol/L Chloride (98-107) mmol/L Carbon Dioxide (22-30) mmol/L Anion Gap mmol/L BUN (7-17) mg/dL Creatinine (0.52-1.04) mg/dL Est GFR (CKD-EPI)AfAm (>60 ml/min/1.73 sqM) Est GFR (CKD-EPI)NonAf (>60 ml/min/1.73 sqM) Glucose (74-99) mg/dL Calcium (8.4-10.2) mg/dL Magnesium (1.6-2.3) mg/dL Total Bilirubin (0.2-1.3) mg/dL AST (14-36) U/L ALT (4-34) U/L Alkaline Phosphatase (38-126) U/L Troponin I <0.012 (0.000-0.034) ng/mL Total Protein (6.3-8.2) g/dL Albumin (3.5-5.0) g/dL Disposition Clinical Impression: Chest pain, COVID-19 Disposition: HOME SELF-CARE Condition: Fair Instructions (If sedation given, give patient instructions): Chest Pain (ED), COVID-19 (Coronavirus Disease 2019) (ED) Is patient prescribed a controlled substance at d/c from ED?: No Referrals: Ezekiel Friend MD [Primary Care Provider] - 1-2 days Time of Disposition: 01:15
[2022-02-02 01:14] VITALS: BP 139/81; PULSE 88; RESP 19; TEMP 97.9
== END 2022-02-02 01:14 | disposition home or self-care (01) ==
LOC: EC 20:56
DX: U07.1 COVID-19 (principal); I10 Essential (primary) hypertension; F41.9 Anxiety disorder, unspecified; Z88.2 Allergy status to sulfonamides; Z79.899 Other long term (current) drug therapy
CPT/HCPCS: 36415; 71046; 80053; 83735; 84484; 85025; 85379; 85610; 85730; 93005; 99285

== ENCOUNTER 2022-02-26 16:32 | Emergency (ER) | payer MEDICARE ==
[2022-02-26 16:59] VITALS: TEMP 98
--- NOTE | 2022-02-26 17:37 | ED ---
Fall HPI - General Chief Complaint: Fall Stated Complaint: Fall,Left foot injury Time Seen by Provider: 02/26/22 17:01 Source: patient Mode of arrival: wheelchair - History of Present Illness Initial Comments: This 51-year-old female presents with complaint of a fall. She states that she felt 2 days ago down 2 steps. She complains of pain over her left foot more towards the medial and lateral aspects. She also complains of some left elbow pain. She denies any head trauma. There is no neck pain or back pain. She denies any other injuries or complaints or modifying factors. She states that it is painful to ambulate but she is able to ambulate. She denies any other injuries or complaints or modifying factors. She does take [place] at home for other pain symptoms and this is been helping. - Related Data Home Medications Medication Instructions Recorded Confirmed Escitalopram [Lexapro] 10 mg PO HS 11/07/15 04/02/18 Ferrous Sulfate [Iron (65 MG 325 mg PO DAILY 06/21/16 04/02/18 Elemental)] Multivitamin [Multiple Vitamins] 1 tab PO DAILY 08/22/16 04/02/18 Acetaminophen [Tylenol Arthritis] 1,300 mg PO Q12H PRN 04/02/18 04/02/18 Benazepril [Lotensin] 10 mg PO HS 04/02/18 04/02/18 HYDROcodone/APAP 10-325MG [[place] 1 tab PO Q6H PRN 04/02/18 04/02/18 10-325] Ondansetron [Zofran] 4 mg PO Q8H PRN 04/02/18 04/02/18 Ranitidine HCl [Zantac] 150 mg PO DAILY 04/02/18 04/02/18 Previous Rx's Medication Instructions Recorded Dicyclomine [Bentyl] 20 mg PO QID #15 tablet 04/02/18 Morphine Sulfate Ir [MSIR] 15 mg PO Q6HR PRN 3 Days #12 tab 04/03/18 HYDROcodone/APAP 10-325MG [[place] 1 tab PO Q6HR PRN 3 Days #12 tab 08/13/21 10-325] Ondansetron Odt [Zofran Odt] 4 mg PO Q8HR PRN #10 tab 08/13/21 Allergies Allergy/AdvReac Type Severity Reaction Status Date / Time Sulfa (Sulfonamide Allergy Rash/Hives Verified 02/01/22 21:04 Antibiotics) and SOB Review of Systems ROS Statement: Those systems with pertinent positive or pertinent negative responses have been documented in the HPI. ROS Other: All systems not noted in ROS Statement are negative. 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 History of Any Multi-Drug Resistant Organisms: None Reported Past Surgical History: Hysterectomy Additional Past Surgical History / Comment(s): 01-30-16 LAP SLEEVE GASTRECTOMY W/REPAIR OF HIATAL HERNIA Additional Past Anesthesia/Blood Transfusion Reaction / Comment(s): c/o itching with twilight Past Psychological History: Anxiety Smoking Status: Never smoker Past Alcohol Use History: None Reported Past Drug Use History: None Reported - Past Family History Father History Unknown: Yes Family Medical History: Congestive Heart Failure (CHF), Diabetes Mellitus, Hypertension General Exam Limitations: no limitations General appearance: alert, in no apparent distress Neck exam: Absent: tenderness Extremities exam: Present: normal inspection, tenderness (There is some tenderness noted over the mid to lateral aspect of the left foot. There is mild ecchymosis noted. No swelling is identified.), normal capillary refill, other (The patient also has some tenderness over the left elbow more so in the posterior aspect. There is excellent range of motion of the elbow without any difficulty. Strength is intact.). Absent: pedal edema, joint swelling Back exam: Present: normal inspection, full ROM. Absent: tenderness Neurological exam: Present: alert, oriented X3 Psychiatric exam: Present: normal affect, normal mood Skin exam: Present: intact. Absent: rash Course Vital Signs 02/26/22 16:54 Temperature 98 F Pulse Rate 97 Respiratory 20 Rate Blood Pressure 107/94 O2 Sat by Pulse 99 Oximetry Medical Decision Making - Medical Decision Making The patient was seen and examined. X-rays were taken of the left foot as well as the left elbow. The left elbow x-rays are negative. The left foot x-rays show evidence of a slightly displaced left fifth metatarsal fracture. Shaan wrap and Dilshad shoe are applied. It is felt as though she would benefit from following up with orthopedics or podiatry in the near future. She is agreeable with this plan. She has [place] at home as needed for pain. Weightbearing is discouraged. Ice and elevation are recommended. Return parameters are discussed. Disposition Clinical Impression: Metatarsal fracture, Elbow contusion, Fall Disposition: HOME SELF-CARE Condition: Good Instructions (If sedation given, give patient instructions): Foot Fracture in Adults (ED) Additional Instructions: Please take your home norco as needed for pain. Is patient prescribed a controlled substance at d/c from ED?: No Referrals: Ezekiel Friend MD [Primary Care Provider] - 1-2 days Mansoor Eason MD [Medical Doctor] - As Soon As Possible Time of Disposition: 18:28
[2022-02-26] MEDS ORDERED: IBUPROFEN 800 MG TAB PO STA (18:00)
[2022-02-26] MEDS ORDERED: ACETAMINOPHEN TAB 500 MG TAB PO STA (18:19)
--- NOTE | 2022-02-26 18:34 | XR ---
EXAMINATION TYPE: XR foot complete LT DATE OF EXAM: 02/26/2022 6:15 PM INDICATION: Patient age:Female; 51 years old; Reason for study: fracture; COMPARISON: None TECHNIQUE: The right foot was examined in the AP, oblique, and lateral projections. FINDINGS: Oblique acute fracture through the fifth metatarsal shaft with mild displacement of 2 mm. No evidence of intra-articular extension. Calcaneal enthesophyte noted. No additional fractures. No soft tissue swelling present. IMPRESSION: Acute oblique fracture through the fifth digit metatarsal with mild displacement.
--- NOTE | 2022-02-26 18:34 | XR ---
EXAMINATION TYPE: XR elbow complete LT DATE OF EXAM: 02/26/2022 6:15 PM INDICATION: Patient age:Female; 51 years old; Reason for study: fracture; COMPARISON: TECHNIQUE: The left elbow was examined in AP, lateral, and oblique projections. FINDINGS: No evidence of any acute osseous pathology, joint dislocation, or soft tissue swelling is n oted. No evidence of joint effusion is present. IMPRESSION: No evidence of acute fracture.
[2022-02-26 18:54] VITALS: BP 138/83; PULSE 85; RESP 15
== END 2022-02-26 18:54 | disposition home or self-care (01) ==
LOC: EC 16:32
DX: S92.352A Displaced fracture of fifth metatarsal bone, left foot, initial encounter for closed fracture (principal); S50.02XA Contusion of left elbow, initial encounter; I10 Essential (primary) hypertension; Z88.2 Allergy status to sulfonamides; Z79.899 Other long term (current) drug therapy; W10.9XXA Fall (on) (from) unspecified stairs and steps, initial encounter; Y92.89 Other specified places as the place of occurrence of the external cause
CPT/HCPCS: 99284

== ENCOUNTER 2022-07-10 22:08 | Emergency (ER) | payer MEDICARE ==
--- NOTE | 2022-07-10 22:51 | ED ---
General Adult HPI <Priscila Giles - Last Filed: 07/10/22 22:50> <Karen Marino - Last Filed: 07/10/22 23:48> - General Stated complaint: L ARM INJURY Time Seen by Provider: 07/10/22 22:50 - History of Present Illness Initial comments: 51-year-old female presents to the emergency department with a chief complaint of left wrist pain after falling. Denies hitting her head, any loss of consciousness, anticoagulant use. (Priscila Giles) 51- year-old female presents to the emergency department with chief complaint of left wrist pain. She states that she was bending forward in a chair when she fell onto her hands and knees. She states that she has pain in her lateral distal forearm and proximal posterior thumb. She states she took an oxycodone 10mg that she has at home and icing which has been helping with the pain. State it hurts worse with movement of the thumb and wrist. Denies any other injury. Denies hitting her head. (Karen Marino) - Related Data Home Medications Medication Instructions Recorded Confirmed Escitalopram [Lexapro] 10 mg PO HS 11/07/15 04/02/18 Ferrous Sulfate [Iron (65 MG 325 mg PO DAILY 06/21/16 04/02/18 Elemental)] Multivitamin [Multiple Vitamins] 1 tab PO DAILY 08/22/16 04/02/18 Acetaminophen [Tylenol Arthritis] 1,300 mg PO Q12H PRN 04/02/18 04/02/18 Benazepril [Lotensin] 10 mg PO HS 04/02/18 04/02/18 HYDROcodone/APAP 10-325MG [[place] 1 tab PO Q6H PRN 04/02/18 04/02/18 10-325] Ondansetron [Zofran] 4 mg PO Q8H PRN 04/02/18 04/02/18 Ranitidine HCl [Zantac] 150 mg PO DAILY 04/02/18 04/02/18 Previous Rx's Medication Instructions Recorded Dicyclomine [Bentyl] 20 mg PO QID #15 tablet 04/02/18 Morphine Sulfate Ir [MSIR] 15 mg PO Q6HR PRN 3 Days #12 tab 04/03/18 HYDROcodone/APAP 10-325MG [[place] 1 tab PO Q6HR PRN 3 Days #12 tab 08/13/21 10-325] Ondansetron Odt [Zofran Odt] 4 mg PO Q8HR PRN #10 tab 08/13/21 Allergies Allergy/AdvReac Type Severity Reaction Status Date / Time Sulfa (Sulfonamide Allergy Rash/Hives Verified 07/10/22 22:58 Antibiotics) and SOB Review of Systems ROS Other: All systems not noted in ROS Statement are negative. <Priscila Giles - Last Filed: 07/10/22 22:50> ROS Other: All systems not noted in ROS Statement are negative. <Karen Marino - Last Filed: 07/10/22 23:48> ROS Statement: Those systems with pertinent positive or pertinent negative responses have been documented in the HPI. 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 History of Any Multi-Drug Resistant Organisms: None Reported Past Surgical History: Hysterectomy Additional Past Surgical History / Comment(s): 01-30-16 LAP SLEEVE GASTRECTOMY W/REPAIR OF HIATAL HERNIA Additional Past Anesthesia/Blood Transfusion Reaction / Comment(s): c/o itching with twilight Past Psychological History: Anxiety Smoking Status: Never smoker Past Alcohol Use History: None Reported Past Drug Use History: None Reported - Past Family History Father History Unknown: Yes Family Medical History: Congestive Heart Failure (CHF), Diabetes Mellitus, Hypertension <Priscila Giles - Last Filed: 07/10/22 22:50> General Exam <Priscila Giles - Last Filed: 07/10/22 22:50> General appearance: alert, in no apparent distress Head exam: Present: atraumatic, normocephalic, normal inspection Eye exam: Present: normal appearance Respiratory exam: Present: normal lung sounds bilaterally. Absent: respiratory distress, wheezes, rales, rhonchi, stridor Cardiovascular Exam: Present: regular rate, normal rhythm, normal heart sounds. Absent: systolic murmur, diastolic murmur, rubs, gallop, clicks Left Hand Wrist exam: Present: full ROM, tenderness (ttp over posterior thumb and distal radius ), swelling (mild swelling over distal radius), erythema (erythema over distal radius due to icing ) Neuro motor exam: Present: wrist extension intact, thumb opposition intact, thumb IP flexion intact, thumb adduction intact, fingers 2-5 abduction intact Vascular: Present: normal capillary refill, radial pulse (2+) Skin exam: Present: warm, dry, intact <Karen Marino - Last Filed: 07/10/22 23:48> - General Exam Comments Initial Comments: Visual Physical Exam Vital signs reviewed General: Well-appearing, nontoxic, no acute distress. Head: Normocephalic, atraumatic Eyes: PERRLA, EOMI ENT: Airway patent Chest: Nonlabored breathing Skin: No visual rash, normal skin tone Neuro: Alert and oriented 3 Musculoskeletal: No gross abnormalities (Priscila Giles) Course Vital Signs 07/10/22 22:55 Temperature 98.7 F Pulse Rate 94 Respiratory 20 Rate Blood Pressure 154/75 O2 Sat by Pulse 95 Oximetry Medical Decision Making <Karen Marino - Last Filed: 07/10/22 23:48> - Medical Decision Making Was pt. sent in by a medical professional or institution (, PA, PLUMBING ENGINEERING DRAFTSPERSON, urgent care, hospital, or skilled nursing...) When possible be specific @ -No Did you speak to anyone other than the patient for history (EMS, parent, family, police, friend...)? What history was obtained from this source @ -No Did you review nursing and triage notes (agree or disagree)? Why? @ -I reviewed and agree with nursing and triage notes Were old charts reviewed (outside hosp., previous admission, EMS record, old EKG, old radiological studies, urgent care reports/EKG's, skilled nursing records)? Report findings @ -No old charts were reviewed Differential Diagnosis (chest pain, altered mental status, abdominal pain women, abdominal pain men, vaginal bleeding, weakness, fever, dyspnea, syncope, headache, dizziness, GI bleed, back pain, seizure, CVA, palpatations, mental health, musculoskeletal)? @ - distal radius fracture, wrist sprain, scaphoid fracture, this list is not all inclusive EKG interpreted by me (3pts min.). @ -none X-rays interpreted by me (1pt min.). @ -XR wrist showed no acute fracture CT interpreted by me (1pt min.). @ -None done U/S interpreted by me (1pt. min.). @ -None done What testing was considered but not performed or refused? (CT, X-rays, U/S, labs)? Why? @ -None What meds were considered but not given or refused? Why? @ -None Did you discuss the management of the patient with other professionals (professionals i.e. Dr., PA, PLUMBING ENGINEERING DRAFTSPERSON, lab, RT, psych nurse, manager social services, structural steel engineer, teacher, privacy officer, telephonic case manager)? Give summary @ -No Was smoking cessation discussed for >3mins.? @ -No Was critical care preformed (if so, how long)? @ -No Were there social determinants of health that impacted care today? How? (Homelessness, low income, unemployed, alcoholism, drug addiction, transportation, low edu. Level, literacy, decrease access to med. care, detention, rehab)? @ -No Was there de-escalation of care discussed even if they declined (Discuss DNR or withdrawal of care, Hospice)? DNR status @ -No What co-morbidities impacted this encounter? (DM, HTN, Smoking, COPD, CAD, Cancer, CVA, ARF, Chemo, Hep., AIDS, mental health diagnosis, sleep apnea, morbid obesity)? @ -None Was patient admitted / discharged? Hospital course, mention meds given and route, prescriptions, significant lab abnormalities, going to OR and other pertinent info. @ -discharged. Patient presented to the emergency department with left wrist pain after a fall. XR wrist showed no acute fracture. Patient advised to take anti-inflammatory medication at home. Patient discharged in stable condition. Undiagnosed new problem with uncertain prognosis? @ -No Drug Therapy requiring intensive monitoring for toxicity (Heparin, Nitro, Insulin, Cardizem)? @ -No Were any procedures done? @ -No Diagnosis/symptom? @ -wrist sprain Acute, or Chronic, or Acute on Chronic? @ -acute Uncomplicated (without systemic symptoms) or Complicated (systemic symptoms)? @ -uncomplicated Side effects of treatment? @ -No Exacerbation, Progression, or Severe Exacerbation? @ -No Poses a threat to life or bodily function? How? (Chest pain, [place], [place], pneumonia, PE, COPD, DKA, ARF, appy, cholecystitis, CVA, Diverticulitis, Homicidal, Suicidal, threat to staff... and all critical care pts) @ -No (Karen Marino) Disposition <Priscila Giles - Last Filed: 07/10/22 22:50> Is patient prescribed a controlled substance at d/c from ED?: No Time of Disposition: 23:48 <Karen Marino - Last Filed: 07/10/22 23:48> Clinical Impression: Left wrist sprain Disposition: HOME SELF-CARE Condition: Stable Instructions (If sedation given, give patient instructions): Hand Sprain (ED) Additional Instructions: Please return to the Emergency Department if symptoms worsen or any other concerns. Referrals: Ezekiel Friend MD [Primary Care Provider] - 1-2 days
[2022-07-10 22:58] VITALS: BP 154/75; PULSE 94; RESP 20; TEMP 98.7
--- NOTE | 2022-07-10 23:21 | XR ---
EXAMINATION TYPE: XR wrist complete LT DATE OF EXAM: 07/10/2022 11:13 PM INDICATION: Patient age:Female; 51 years old; Reason for study: L wrist pain; COMPARISON: None TECHNIQUE: left wrist was examined in the. Frontal, navicular, lateral, and oblique. FINDINGS: No acute osseous pathology, joint dislocation, or joint effusion. No evidence of any soft tissue swelling is seen. IMPRESSION: No acute osseous pathology.
== END 2022-07-11 00:03 | disposition home or self-care (01) ==
LOC: EC 22:08
DX: S63.502A Unspecified sprain of left wrist, initial encounter (principal); I10 Essential (primary) hypertension; F41.9 Anxiety disorder, unspecified; Z79.899 Other long term (current) drug therapy; Z88.2 Allergy status to sulfonamides; W07.XXXA Fall from chair, initial encounter
CPT/HCPCS: 99283

== ENCOUNTER 2022-12-03 18:54 | Emergency (ER) | payer MEDICARE ==
[2022-12-03] MEDS ORDERED: SODIUM CHLORIDE 0.9% 1,000 ML IV STA (19:24)
--- NOTE | 2022-12-03 19:25 | ED ---
General Adult HPI - General Chief complaint: Abdominal Pain Stated complaint: abdominal pain Time Seen by Provider: 12/03/22 19:01 Source: patient, RN notes reviewed Mode of arrival: ambulatory Limitations: no limitations - History of Present Illness Initial comments: 52-year-old female presents emergency department chief complaint of left flank pain x3 hours. She states the pain has been constant and came on suddenly. She reports associated nausea and vomiting that started around the same time. Denies aggravating or alleviating factors. Denies radiation of pain. She reports that she took 2 10 mg Percocets and morphine. Denies injury. Denies fever, chill, dysuria, hematuria, abdominal pain. - Related Data Home Medications Medication Instructions Recorded Confirmed Escitalopram [Lexapro] 10 mg PO HS 11/07/15 04/02/18 Ferrous Sulfate [Iron (65 MG 325 mg PO DAILY 06/21/16 04/02/18 Elemental)] Multivitamin [Multiple Vitamins] 1 tab PO DAILY 08/22/16 04/02/18 Acetaminophen [Tylenol Arthritis] 1,300 mg PO Q12H PRN 04/02/18 04/02/18 Benazepril [Lotensin] 10 mg PO HS 04/02/18 04/02/18 HYDROcodone/APAP 10-325MG [[place] 1 tab PO Q6H PRN 04/02/18 04/02/18 10-325] Ondansetron [Zofran] 4 mg PO Q8H PRN 04/02/18 04/02/18 Ranitidine HCl [Zantac] 150 mg PO DAILY 04/02/18 04/02/18 Previous Rx's Medication Instructions Recorded Dicyclomine [Bentyl] 20 mg PO QID #15 tablet 04/02/18 Morphine Sulfate Ir [MSIR] 15 mg PO Q6HR PRN 3 Days #12 tab 04/03/18 HYDROcodone/APAP 10-325MG [[place] 1 tab PO Q6HR PRN 3 Days #12 tab 08/13/21 10-325] Ondansetron Odt [Zofran Odt] 4 mg PO Q8HR PRN #10 tab 08/13/21 Amoxic-Pot Clav 875-125Mg 1 tab PO Q12HR #14 tab 12/03/22 [Augmentin 875-125] Allergies Allergy/AdvReac Type Severity Reaction Status Date / Time Sulfa (Sulfonamide Allergy Rash/Hives Verified 12/03/22 18:58 Antibiotics) and SOB Review of Systems ROS Statement: Those systems with pertinent positive or pertinent negative responses have been documented in the HPI. ROS Other: All systems not noted in ROS Statement are negative. 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 History of Any Multi-Drug Resistant Organisms: None Reported Past Surgical History: Hysterectomy Additional Past Surgical History / Comment(s): 01-30-16 LAP SLEEVE GASTRECTOMY W/REPAIR OF HIATAL HERNIA Additional Past Anesthesia/Blood Transfusion Reaction / Comment(s): c/o itching with twilight Past Psychological History: Anxiety Smoking Status: Never smoker Past Alcohol Use History: None Reported Past Drug Use History: None Reported - Past Family History Father History Unknown: Yes Family Medical History: Congestive Heart Failure (CHF), Diabetes Mellitus, Hypertension General Exam Limitations: no limitations General appearance: alert, in no apparent distress Head exam: Present: atraumatic, normocephalic, normal inspection Eye exam: Present: normal appearance, PERRL, EOMI. Absent: scleral icterus, conjunctival injection, periorbital swelling ENT exam: Present: normal exam, mucous membranes moist Neck exam: Present: normal inspection. Absent: tenderness, meningismus, lymphadenopathy Respiratory exam: Present: normal lung sounds bilaterally. Absent: respiratory distress, wheezes, rales, rhonchi, stridor Cardiovascular Exam: Present: regular rate, normal rhythm, normal heart sounds. Absent: systolic murmur, diastolic murmur, rubs, gallop, clicks GI/Abdominal exam: Present: soft, tenderness (diffuse), normal bowel sounds. Absent: distended, guarding, rebound, rigid Extremities exam: Present: normal inspection, full ROM, normal capillary refill. Absent: tenderness, pedal edema, joint swelling, calf tenderness Back exam: Present: normal inspection, tenderness (left flank) Neurological exam: Present: alert, oriented X3 Psychiatric exam: Present: normal affect, normal mood Skin exam: Present: warm, dry, intact, normal color. Absent: rash Course Vital Signs 12/03/22 12/03/22 12/03/22 18:56 19:50 22:45 Temperature 98.4 F 97.4 F L 97.8 F Pulse Rate 85 89 Respiratory 24 20 Rate Blood Pressure 145/72 152/79 O2 Sat by Pulse 97 95 Oximetry Medical Decision Making - Medical Decision Making Was pt. sent in by a medical professional or institution (DANIKA French, GLUE MOUNTER OPERATOR, urgent care, hospital, or residential...) When possible be specific @ -No Did you speak to anyone other than the patient for history (EMS, parent, family, police, friend...)? What history was obtained from this source @ -No Did you review nursing and triage notes (agree or disagree)? Why? @ -I reviewed and agree with nursing and triage notes Were old charts reviewed (outside hosp., previous admission, EMS record, old EKG, old radiological studies, urgent care reports/EKG's, residential records)? Report findings @ -No old charts were reviewed Differential Diagnosis (chest pain, altered mental status, abdominal pain women, abdominal pain men, vaginal bleeding, weakness, fever, dyspnea, syncope, headache, dizziness, GI bleed, back pain, seizure, CVA, palpatations, mental health, musculoskeletal)? @ -Differential Abdominal Pain Women: Appendicitis, Cholecystitis, diverticulosis, ischemic bowel, pancreatitis, hepa titis, UTI, gastroenteritis, AAA, incarcerated hernia, bowel obstruction, constipation, inflammatory bowel, hepatitis, peptic ulcer disease, splenic infarction, perforated viscus, vulvitis, ovarian torsion, PID, kidney stone, placenta abruption, this is not meant to be an all-inclusive list EKG interpreted by me (3pts min.). @ -EKG at 2051 shows sinus rhythm rate 84, MI 159, QRS 102 X-rays interpreted by me (1pt min.). @ -None done CT interpreted by me (1pt min.). @ -CT showed no evidence of left renal stone U/S interpreted by me (1pt. min.). @ -None done What testing was considered but not performed or refused? (CT, X-rays, U/S, labs)? Why? @ -None What meds were considered but not given or refused? Why? @ -None Did you discuss the management of the patient with other professionals (professionals i.e. DANIKA French, GLUE MOUNTER OPERATOR, lab, RT, psych nurse, certified social workers in health care, assembler body, teacher, code enforcement officer, cyanide case hardener)? Give summary @ -No Was smoking cessation discussed for >3mins.? @ -No Was critical care preformed (if so, how long)? @ -No Were there social determinants of health that impacted care today? How? (Homelessness, low income, unemployed, alcoholism, drug addiction, transportation, low edu. Level, literacy, decrease access to med. care, long term, rehab)? @ -No Was there de-escalation of care discussed even if they declined (Discuss DNR or withdrawal of care, Hospice)? DNR status @ -No What co-morbidities impacted this encounter? (DM, HTN, Smoking, COPD, CAD, Cancer, CVA, ARF, Chemo, Hep., AIDS, mental health diagnosis, sleep apnea, morbid obesity)? @ -None Was patient admitted / discharged? Hospital course, mention meds given and route, prescriptions, significant lab abnormalities, going to OR and other pertinent info. @ -Discharged. Patient presented to emergency department chief complaint of left flank pain 1 day. Upon initial evaluation, patient appears uncomfortable. She took her home pain medication just prior to arrival and states that it has not helped yet. CBC WNL, CMP shows Na 138, Potassium hemolyzed, Cr 0.85; UA showed trace protein, 1+ ketones likely due to mild dehydration, large blood. Patient given 1L NS. CT abd pelvis showed mild diverticulitis, colitis, mild inflammation changes along descending colon, stable monty mesentery patient has known history of sclerosing mesenteritis, no evidence of obstructive uropathy. Upon reevaluation patients pain has improved. She is resting comfortably in bed. Patient was advised on findings of laboratory studies and CT. Patient expressed understanding stable at time of discharge. Case discussed with my attending, Dr. Be Undiagnosed new problem with uncertain prognosis? @ -No Drug Therapy requiring intensive monitoring for toxicity (Heparin, Nitro, Insulin, Cardizem)? @ -No Were any procedures done? @ -No Diagnosis/symptom? @ -diverticulitis Acute, or Chronic, or Acute on Chronic? @ -acute Uncomplicated (without systemic symptoms) or Complicated (systemic symptoms)? @ -uncomplicated Side effects of treatment? @ -No Exacerbation, Progression, or Severe Exacerbation? @ -No Poses a threat to life or bodily function? How? (Chest pain, [place], [place], pneumonia, PE, COPD, DKA, ARF, appy, cholecystitis, CVA, Diverticulitis, Homicidal, Suicidal, threat to staff... and all critical care pts) @ -No - Lab Data Result diagrams: 12/03/22 19:26 12/03/22 19:26 Lab Results 12/03/22 12/03/22 12/03/22 Range/Units 19:26 19:26 19:26 WBC 9.3 (3.8-10.6) k/uL RBC 4.83 (3.80-5.40) m/uL Hgb 14.6 (11.4-16.0) gm/dL Hct 44.1 (34.0-46.0) % MCV 91.3 (80.0-100.0) fL MCH 30.2 (25.0-35.0) pg MCHC 33.1 (31.0-37.0) g/dL RDW 13.6 (11.5-15.5) % Plt Count 300 (150-450) k/uL MPV 8.4 Neutrophils % 75 % Lymphocytes % 18 % Monocytes % 4 % Eosinophils % 2 % Basophils % 0 % Neutrophils # 6.9 (1.3-7.7) k/uL Lymphocytes # 1.7 (1.0-4.8) k/uL Monocytes # 0.3 (0-1.0) k/uL Eosinophils # 0.2 (0-0.7) k/uL Basophils # 0.0 (0-0.2) k/uL Sodium 138 (137-145) mmol/L Potassium 5.9 H (3.5-5.1) mmol/L Chloride 102 (98-107) mmol/L Carbon Dioxide 26 (22-30) mmol/L Anion Gap 10 mmol/L BUN 19 H (7-17) mg/dL Creatinine 0.85 (0.52-1.04) mg/dL Est GFR (CKD-EPI)AfAm >90 (>60 ml/min/1.73 sqM) Est GFR (CKD-EPI)NonAf 80 (>60 ml/min/1.73 sqM) Glucose 116 H (74-99) mg/dL Plasma Lactic Acid Berry 1.9 (0.7-2.0) mmol/L Calcium 9.3 (8.4-10.2) mg/dL Total Bilirubin 1.8 H (0.2-1.3) mg/dL AST 68 H (14-36) U/L ALT 19 (4-34) U/L Alkaline Phosphatase 80 (38-126) U/L Total Protein 8.4 H (6.3-8.2) g/dL Albumin 4.7 (3.5-5.0) g/dL Amylase 70 (30-110) U/L Lipase 43 (23-300) U/L Urine Color Urine Appearance (Clear) Urine pH (5.0-8.0) Ur Specific [place] (1.001-1.035) Urine Protein (Negative) Urine Glucose (UA) (Negative) Urine Ketones (Negative) Urine Blood (Negative) Urine Nitrite (Negative) Urine Bilirubin (Negative) Urine Urobilinogen (<2.0) mg/dL Ur Leukocyte Esterase (Negative) Urine RBC (0-5) /hpf Urine WBC (0-5) /hpf Ur Squamous Epith Cells (0-4) /hpf Urine Bacteria (None) /hpf Hyaline Casts (0-2) /lpf Urine Mucus (None) /hpf 12/03/22 Range/Units 21:01 WBC (3.8-10.6) k/uL RBC (3.80-5.40) m/uL Hgb (11.4-16.0) gm/dL Hct (34.0-46.0) % MCV (80.0-100.0) fL MCH (25.0-35.0) pg MCHC (31.0-37.0) g/dL RDW (11.5-15.5) % Plt Count (150-450) k/uL MPV Neutrophils % % Lymphocytes % % Monocytes % % Eosinophils % % Basophils % % Neutrophils # (1.3-7.7) k/uL Lymphocytes # (1.0-4.8) k/uL Monocytes # (0-1.0) k/uL Eosinophils # (0-0.7) k/uL Basophils # (0-0.2) k/uL Sodium (137-145) mmol/L Potassium (3.5-5.1) mmol/L Chloride (98-107) mmol/L Carbon Dioxide (22-30) mmol/L Anion Gap mmol/L BUN (7-17) mg/dL Creatinine (0.52-1.04) mg/dL Est GFR (CKD-EPI)AfAm (>60 ml/min/1.73 sqM) Est GFR (CKD-EPI)NonAf (>60 ml/min/1.73 sqM) Glucose (74-99) mg/dL Plasma Lactic Acid Berry (0.7-2.0) mmol/L Calcium (8.4-10.2) mg/dL Total Bilirubin (0.2-1.3) mg/dL AST (14-36) U/L ALT (4-34) U/L Alkaline Phosphatase (38-126) U/L Total Protein (6.3-8.2) g/dL Albumin (3.5-5.0) g/dL Amylase (30-110) U/L Lipase (23-300) U/L Urine Color Yellow Urine Appearance Cloudy H (Clear) Urine pH 6.0 (5.0-8.0) Ur Specific [place] 1.018 (1.001-1.035) Urine Protein Trace H (Negative) Urine Glucose (UA) Negative (Negative) Urine Ketones 1+ H (Negative) Urine Blood Large H (Negative) Urine Nitrite Negative (Negative) Urine Bilirubin Negative (Negative) Urine Urobilinogen <2.0 (<2.0) mg/dL Ur Leukocyte Esterase Trace H (Negative) Urine RBC >182 H (0-5) /hpf Urine WBC 1 (0-5) /hpf Ur Squamous Epith Cells 1 (0-4) /hpf Urine Bacteria Rare H (None) /hpf Hyaline Casts 1 (0-2) /lpf Urine Mucus Rare H (None) /hpf Disposition Clinical Impression: Diverticulitis Disposition: HOME SELF-CARE Condition: Stable Additional Instructions: Please follow up with your primary care provider. Return to the emergency department for new or worsening symptoms. Prescriptions: Amoxic-Pot Clav 875-125Mg [Augmentin 875-125] 1 tab PO Q12HR #14 tab Is patient prescribed a controlled substance at d/c from ED?: No Referrals: Cassie Friend [Primary Care Provider] - 1-2 days Cale Cleveland MD [STAFF PHYSICIAN] - 1-2 days Time of Disposition: 22:19
[2022-12-03 19:42] LABS: ALT 19 U/L (4-34); AST 68 U/L (14-36); African American GFR (CKD) >90 (>60 ml/min/1.73 sqM); Albumin 4.7 g/dL (3.5-5.0); Alkaline Phosphatase 80 U/L (38-126); Amylase 70 U/L (30-110); Anion Gap 10 mmol/L; Blood Urea Nitrogen 19 mg/dL (7-17); Calcium 9.3 mg/dL (8.4-10.2); Carbon Dioxide 26 mmol/L (22-30); Chloride 102 mmol/L (98-107); Glucose 116 mg/dL (74-99); Lipase 43 U/L (23-300); Non-African American GFR(CKD) 80 (>60 ml/min/1.73 sqM); Sodium 138 mmol/L (137-145); Total Bilirubin 1.8 mg/dL (0.2-1.3); Total Protein 8.4 g/dL (6.3-8.2)
[2022-12-03 19:48] LABS: Potassium 5.9 mmol/L (3.5-5.1)
[2022-12-03 20:13] LABS: Basophils % (A) 0 %; Eosinophils # (A) 0.2 k/uL (0-0.7); Eosinophils % (A) 2 %; HCT 44.1 % (34.0-46.0); HGB 14.6 gm/dL (11.4-16.0); Lymphocytes # (A) 1.7 k/uL (1.0-4.8); Lymphocytes % (A) 18 %; MCH 30.2 pg (25.0-35.0); MCHC 33.1 g/dL (31.0-37.0); MCV 91.3 fL (80.0-100.0); Mean Platelet Volume 8.4; Monocytes # (A) 0.3 k/uL (0-1.0); Monocytes % (A) 4 %; Neutrophils # (A) 6.9 k/uL (1.3-7.7); Neutrophils % (A) 75 %; Platelet Count 300 k/uL (150-450); RBC 4.83 m/uL (3.80-5.40); RDW 13.6 % (11.5-15.5); WBC 9.3 k/uL (3.8-10.6)
[2022-12-03 21:22] LABS: Appearance,Urine Cloudy (Clear); Bacteria,Urine Rare /hpf; Bilirubin,Urine Negative (Negative); Blood,Urine Large (Negative); Color,Urine Yellow; Glucose,Urine (UA) Negative (Negative); Hyaline Casts,Urine 1 /lpf (0-2); Ketones,Urine 1+ (Negative); Leukocyte Esterase,Urine Trace (Negative); Mucus,Urine Rare /hpf; Nitrite,Urine Negative (Negative); Protein,Urine Trace (Negative); RBC,Urine >182 /hpf (0-5); Specific Gravity,Urine 1.018 (1.001-1.035); Squamous Epithelial Cell,Urine 1 /hpf (0-4); Urobilinogen,Urine <2.0 mg/dL (<2.0); WBC,Urine 1 /hpf (0-5)
--- NOTE | 2022-12-03 21:38 | CT ---
EXAMINATION TYPE: CT abdomen pelvis wo con CT DLP: 2301.7 mGycm, Automated exposure control for dose reduction was used. DATE OF EXAM: 12/03/2022 9:20 PM COMPARISON: 08/13/2021 CLINICAL INDICATION:Female, 52 years old with history of lt flank pain; left side flank pain. hx of k idney stones. TECHNIQUE: Axial CT of the abdomen and pelvis. Sagittal and coronal reformats were created on a [employer] workstation. Contrast used: mL of , (none if empty) Oral contrast used: without Oral Contrast (none if empty) FINDINGS: LOWER CHEST: Unremarkable ABDOMEN LIVER: Unremarkable GALLBLADDER AND BILE DUCTS: Unremarkable. PANCREAS: Unremarkable. SPLEEN: Unremarkable. ADRENAL GLANDS: Unremarkable. KIDNEYS AND URETERS: No evidence of hydronephrosis or renal calculus. The ureters are unremarkable. PELVIS BLADDER: Incompletely distended but grossly unremarkable. REPRODUCTIVE: Unremarkable. ABDOMEN & PELVIS STOMACH AND BOWEL: Postsurgical changes to the gastric greater curvature. Small hiatal hernia. Postsu rgical changes to the stomach. Versus colitis. Mild inflammation changes are seen along the descendin g colon there are a few colonic diverticula present. No evidence of bowel obstruction. PERITONEUM/RETROPERITONEUM: No evidence of pneumoperitoneum or free fluid. Monty mesentery similar to prior in 2021. VASCULATURE: No evidence of aortic aneurysm. MUSCULOSKELETAL: No acute osseous abnormalities. Moderate disc degeneration changes are present throu ghout the thoracolumbar spine. Grade 2 anterolisthesis of L5 on S1 with bilateral spondylolysis. LYMPH NODES: No gross evidence for lymphadenopathy. SOFT TISSUE/ABDOMINAL WALL: Fat-containing umbilical hernia. IMPRESSION: 1. Mild inflammation changes along the descending colon which may represent mild diverticula particu larly colitis 2. Stable monty mesentery which may represents sclerosing mesenteritis. 3. No evidence for obstructive uropathy. 4. Grade 2 anterolisthesis of L5 on S1 with bilateral spondylolysis.
[2022-12-03] MEDS ORDERED: AMOXIC-POT CLAV 875MG STARTER PACK 2 TAB BTL PO STA (22:18)
[2022-12-03 22:56] VITALS: BP 152/79; PULSE 89; RESP 20; TEMP 97.8
== END 2022-12-03 22:45 | disposition home or self-care (01) ==
LOC: EC 18:54
DX: K57.32 Diverticulitis of large intestine without perforation or abscess without bleeding (principal); K52.9 Noninfective gastroenteritis and colitis, unspecified; I10 Essential (primary) hypertension; F41.9 Anxiety disorder, unspecified; Z79.899 Other long term (current) drug therapy; Z88.2 Allergy status to sulfonamides
CPT/HCPCS: 36415; 74176; 80053; 81001; 82150; 83605; 83690; 85025; 93005; 96360; 99284

== ENCOUNTER → 2022-12-18 | Outpatient (CLI) | payer MEDICARE | END | disposition home or self-care (01) | LOC: LABPAT 15:58 | PROVIDERS: ATTEND Orthopaedic Surgery | DX: Z01.812 Encounter for preprocedural laboratory examination (principal); Z22.322 Carrier or suspected carrier of Methicillin resistant Staphylococcus aureus; M17.11 Unilateral primary osteoarthritis, right knee | CPT/HCPCS: 87070 ==

== ENCOUNTER → 2023-01-23 | Outpatient (CLI) | payer MEDICARE ==
[2023-01-23 19:21] LABS: BUN/Creat Ratio 16.25 Ratio (12.00-20.00); Calcium 9.8 mg/dL (8.7-10.3); Chloride 103 mmol/L (96-109); Glucose 93 mg/dL (70-110); Sodium 145 mmol/L (135-145)
[2023-01-23 21:02] LABS: Basophils # (A) 0.03 X 10*3/uL (0.00-0.10); Basophils % (A) 0.4 %; Eosinophils # (A) 0.15 X 10*3/uL (0.04-0.35); Eosinophils % (A) 2.1 %; HCT 42.2 % (37.2-46.3); HGB 13.3 d/dL (12.0-15.0); Lymphocytes % (A) 23.5 %; MCH 29.6 pg (27.0-32.0); MCHC 31.5 d/dL (32.0-37.0); MCV 93.8 FL (80.0-97.0); Mean Platelet Volume 10.9 FL (9.5-12.2); Monocytes # (A) 0.34 X 10*3/uL (0.20-1.00); Monocytes % (A) 4.7 %; NRBC Per 100 WBC 0 X 10*3/uL (0.00-0.01); Neutrophils # (A) 4.97 X 10*3/uL (1.80-7.70); Neutrophils % (A) 68.9 %; Platelet Count 315 X 10*3/uL (140-440); RDW 13.4 % (11.5-14.5); WBC 7.22 X 10*3/uL (4.50-10.00)
[2023-01-23 23:38] LABS: INR 1.01 sec (0.93-1.11); Prothrombin Time 10.9 sec (9.9-11.9)
== END | disposition home or self-care (01) ==
LOC: LABPAT 13:25
PROVIDERS: ATTEND Orthopaedic Surgery
DX: Z01.812 Encounter for preprocedural laboratory examination (principal); M17.11 Unilateral primary osteoarthritis, right knee
CPT/HCPCS: 80048; 85025; 85610

== ENCOUNTER 2023-01-29 05:53 | Observation (INO) | payer MEDICARE ==
[2023-01-25 11:11] VITALS: BMI 56.7
--- NOTE | 2023-01-28 08:16 | P.HPOR ---
History of Present Illness H&P Date: 01/28/23 Chief Complaint: Left knee pain The patient's a 52-year-old female who presents with progressive left knee pain for the past several years worsening over the past year. She is having pain with any weightbearing activities along with standing from a seated position. She tried medications in addition to injections without much relief. She does use a cane. She notes the pain limits her normal function and activities. Review of Systems Negative except as in HPI Past Medical History Past Medical History: Hypertension, Pneumonia, Sleep Apnea/CPAP/BIPAP Additional Past Medical History / Comment(s): MESENTERIC PANNICULITIS History of Any Multi-Drug Resistant Organisms: None Reported Past Surgical History: Hysterectomy Additional Past Surgical History / Comment(s): 01-30-16 LAP SLEEVE GASTRECTOMY W/REPAIR OF HIATAL HERNIA Past Anesthesia/Blood Transfusion Reactions: Previous Problems w/ Anesthesia Additional Past Anesthesia/Blood Transfusion Reaction / Comment(s): c/o itching with twilight Past Psychological History: Anxiety Smoking Status: Never smoker Past Alcohol Use History: None Reported Past Drug Use History: None Reported - Past Family History Father History Unknown: Yes Family Medical History: Congestive Heart Failure (CHF), Diabetes Mellitus, Hypertension Medications and Allergies Home Medications Medication Instructions Recorded Confirmed Type Escitalopram [Lexapro] 20 mg PO DAILY 11/07/15 01/25/23 History Benazepril [Lotensin] 10 mg PO DAILY 04/02/18 01/25/23 History Ondansetron [Zofran] 4 mg PO Q8H PRN 04/02/18 01/25/23 History Cyclobenzaprine [Flexeril] 10 mg PO DAILY 01/25/23 01/25/23 History DULoxetine HCL [Cymbalta] 120 mg PO DAILY 01/25/23 01/25/23 History Famotidine 20 mg PO BID 01/25/23 01/25/23 History Pregabalin [Lyrica] 150 mg PO TID 01/25/23 01/25/23 History Tolterodine ER [Detrol LA] 4 mg PO DAILY 01/25/23 01/25/23 History oxyCODONE-APAP 10-325MG [Percocet 1 tab PO DIRECTED PRN 01/25/23 01/25/23 History 10-325 mg] Allergies Allergy/AdvReac Type Severity Reaction Status Date / Time Sulfa (Sulfonamide Allergy Rash/Hives Verified 01/25/23 10:48 Antibiotics) and SOB Physical Examination - Knee left Appearance: effusion Effusion grade: grade 1 Varus alignment in stance: 5 degrees Tenderness with palpation: anterior, medial Pain: throughout ROM Gait: uses cane ROM: extension: -10 degrees ROM: flexion: 100 degrees Crepitus with motion: Yes Strength: extension: 5/5 Strength: flexion: 5/5 Meniscal tests: medial meniscal tests: positive, medial joint line pain: positive Results The patient is a well-developed well-nourished female approximately 5 foot 2, 290 pounds endomorphic habitus. HEENT exam is nonfocal, neck is supple. She has painless passive motion of the right hip. Straight leg raise is negative. She tender about the medial joint line of the right knee. Collaterals are stable, Elsa was negative, Crystal's elicits medial pain. Her distal neurovascular appears intact right lower extremity. - Diagnostic results Knee x-ray: image reviewed (3 views of the right knee obtained in the office shows severe medial and patellofemoral compartment narrowing with subchondral sclerosis and [id number] changes.) Assessment and Plan Assessment: Right knee severe medial and patellofemoral compartment osteoarthrosis Obesity/BMI greater than 50 Plan: I talked to the patient length regarding her condition along with treatment options. At this point she's had gastric bypass along with significant weight loss. She is having significant symptomatology secondary to her osteoarthrosis despite other conservative measures. After thorough discussion she opted to proceed with surgery. Risks and benefits were discussed at length in layman's turns. We will plan to proceed with right total knee arthroplasty. We will institute DVT prophylaxis postoperatively.
[~2023-01-29 05:53] MED LIST: ACETAMINOPHEN TAB 500 MG TAB PO PRN; MELOXICAM 7.5 MG TAB PO PRN; TRANEXAMIC 1,000 MG/100ML-NACL 1,000 MG in SALINE 1 100ML.BAG IVPB PRN; ceFAZolin 3 GM in SODIUM CHLORIDE 0.9% 100 ML IVPB PRN
[2023-01-29] MEDS ORDERED: HYDROmorphone 0.5 MG/0.5 ML SYRINGE IVP PRN ×2 (06:09→10:14)
[2023-01-29] MEDS ORDERED: LACTATED RINGERS 1,000 ML IV ONE ×3 (06:15→11:45)
[2023-01-29] MEDS: DEXAMETHASONE SOD PHOSPHATE 4 MG/ML 1 ML VIAL IV ONE ×2 (07:04→07:50)
[2023-01-29] MEDS: ONDANSETRON 4 MG/2 ML VIAL IVP ONE ×2 (07:05→07:50)
[2023-01-29] MEDS ORDERED: MIDAZOLAM 2 MG/2 ML VIAL IVP ONE (07:50)
[2023-01-29] MEDS ORDERED: HYDROmorphone (PF) 1 MG/ML ONE (08:09)
[2023-01-29] MEDS ORDERED: ROPIVACAINE 5 MG/ML 30 ML VIAL ONE (08:09)
[2023-01-29] MEDS ORDERED: SUCCINYLCHOLINE CHLORIDE 200 MG/10 ML VIAL IV ONE (08:09)
[2023-01-29] MEDS ORDERED: PHENYLEPHRINE 10 MG/ML 5 ML VIAL ONE (08:09)
[2023-01-29] MEDS ORDERED: LIDOCAINE 1% INJ 10MG/ML (20 ML MDV) ONE (08:09)
[2023-01-29] MEDS ORDERED: GLYCOPYRROLATE 0.2 MG/ML 2 ML VIAL ONE (08:09)
[2023-01-29] MEDS ORDERED: ROCURONIUM 10 MG/ML (5 ML VIAL) IV ONE (08:09)
[2023-01-29] MEDS ORDERED: NEOSTIGMINE 1 MG/ML 10 ML VIAL ONE (08:09)
[2023-01-29] MEDS ORDERED: PROPOFOL 10 MG/ML 20 ML VIAL IV ONE (08:09)
[2023-01-29] MEDS ORDERED: fentaNYL (PF) 50 MCG/ML 2 ML AMP ONE (08:09)
[2023-01-29] MEDS ORDERED: MIDAZOLAM 2 MG/2 ML VIAL ONE (08:09)
[2023-01-29] MEDS ORDERED: ceFAZolin 1,000 MG in SODIUM CHLORIDE 0.9% 1,000 ML IRRIGATION ONE (08:55)
[2023-01-29] MEDS ORDERED: MAGNESIUM HYDROXIDE 2,400 MG/30 ML CUP PO PRN (10:14)
[2023-01-29] MEDS ORDERED: NALOXONE 0.4 MG/ML 1 ML VIAL IV PRN (10:14)
[2023-01-29] MEDS ORDERED: oxyCODONE-APAP 5-325MG 1 EACH TAB PO PRN (10:18)
--- NOTE | 2023-01-29 10:41 | P.OP ---
Date of Procedure: 01/29/23 Preoperative Diagnosis: Right knee severe tricompartmental osteoarthrosis Postoperative Diagnosis: Same Procedure(s) Performed: Right total knee arthroplastycementedposterior stabilized Implants: Depuy Attune size 4 narrow cemented femoral component, size 3 cemented tibial component, 14 x 50 mm tibial stem, 9 mm articular surface, 32 mm cemented patellar component. This is a posterior stabilized implant. Anesthesia: GETA Surgeon: Bartolo Kiran Office Administrative Assistant #1: Pieter Elizabeth Estimated Blood Loss (ml): 200 Pathology: other (Bone fragments) Condition: stable Disposition: PACU Indications for Procedure: The patient is a 52-year-old female who presents with progressive right knee pain secondary to osteoporosis despite extensive conservative measures. She previously undergone bariatric surgery and lost 100 pounds. A discussion of the risks and benefits of operative intervention versus continued conservative measures was made with the patient. She opted to proceed with surgery. Operative risks to include infection, neurovascular injury, development of blood clots, component loosening, component failure, and possible need for subsequent procedures was discussed. Informed consent was obtained. Operative Findings: As below Description of Procedure: The patient was brought to the operating room, and after induction of general anesthesia the right lower extremity was prepped and draped in a normal fashion. The tourniquet was inflated to 270 mm of mercury. A longitudinal incision extending 3 finger breaths above the superior pole of patella extending to the medial aspect the tibial tubercle was then made. The skin and subcutaneous tissues were divided sharply. Electrocautery was used for hemostasis. The tourniquet did not function well therefore was deflated until cementation. A medial parapatellar arthrotomy was performed. The medial soft tissues to include the superficial and deep portions of the medial collateral ligament were elevated subperiosteally. The patella was everted. A portion of the retropatellar fat pad was excised sharply. The anterior cruciate ligament was sacrificed. Blunt retractors were placed. A starting hole was made in the distal femur 1 cm anterior to the posterior cruciate ligament origin. An intramedullary femoral guide was then inserted planning on 5 valgus distal cut with 9 mm distal resection. The cutting block was pinned in place. The distal cut was then made. The posterior referencing sizing guide was utilized. I felt size 4 narrow was most appropriate. 3 of external rotation was built into the system and verified off the trans-epicondylar axis and the posterior condyles. The cutting block was pinned in place. The anterior, posterior, and chamfer cuts then made. Bone fragments were removed. The intercondylar guide was placed and the notch cut was made with a sagittal saw. The bone block was removed in one fragment. The trial component was then placed. There is good anterior to posterior and medial to lateral fit. The distal peg holes were drilled. The trial component was removed. Attention was then paid towards preparing the proximal tibia. An extra medullary guide was utilized in line with the tibial shaft and second metatarsal distally. I planned on 2 mm resection from the medial compartment. The cutting block was pinned in place. The proximal tibial cut was then made. The bone was removed in one fragment. The remnants of the medial and lateral menisci were excised at the capsular junction with electrocautery. The tibia sized most appropriately at size 3. The trial femoral and tibial components were placed along with a 9 mm articular surface. I was able to obtain full flexion and extension with internal and external rotation. After several flexion and extension cycles, the tibial rotation was marked with electrocautery line with the medial one third of the tibial tubercle. Attention was then paid towards preparing the patella. A pa tella reamer was utilized taking stem to 14 mm of bone stock. A good flush cut was made. The patella sized most appropriately 32 mm. The peg holes were drilled. The trial components placed. I had good patellofemoral tracking with no hands technique. The trial components were then removed. The tibia was prepared in the appropriate rotation with appropriate drill and keel punch. I planned on a 14 x 50 mm stem extension. The posterior osteophytes were removed with a curved osteotome. The flexion and extension gaps were checked and felt to be symmetric at 9 mm. A trial components were then removed. The bony surfaces were prepared with pulsatile lavage and dried. The tibial component was then cemented place was fully seated. Excess cement was removed. The femoral component cemented place and was fully seated. Excess cement was removed. The trial 9 mm articular surface was placed and the knee was put in full extension. The patella component was cemented place. After the cement had sufficiently hardened, the knee was again taken through a range of motion. Again I was able to obtain full flexion and extension with varus and valgus stress. The trial 9 mm articular surface was removed and the final one inserted. This was fully seated. Care was taken to avoid any soft tissue interposition. Pulsatile lavage was again utilized. The medial parapatellar arthrotomy was closed with #2 Ethibond suture. The tourniquet was deflated with approximately 60 minutes total tourniquet time. Final hemostasis was obtained with the cautery. There was minimal bleeding therefore a deep drain was not placed. The subcutaneous tissues were reapproximated with interrupted 2-0 Vicryl sutures. The skin was reapproximated with 3-0 subcuticular strata fix suture. Skin tape and adhesive was applied. A sterile dressing was applied. The patient was awoken from general anesthesia and transferred to recovery room in good condition. Blood loss was estimated at 200 mL. No complications were incurred. Sponge and needle counts were correct at the end of the case. Pieter GARNICA assisted during the major components of this case to include exposure, bone resection, implantation, and closure.
--- NOTE | 2023-01-29 11:43 | XR ---
EXAMINATION TYPE: XR knee limited RT DATE OF EXAM: 01/29/2023 COMPARISON: None HISTORY: Postop knee replacement TECHNIQUE: 2 view right knee FINDINGS: Tibial femoral component have been placed. No acute fracture or dislocation is evident. Pos tsurgical soft tissue changes are evident. IMPRESSION: 1. No acute fractures post knee replacement.
--- NOTE | 2023-01-29 11:44 | XR ---
EXAMINATION TYPE: XR chest 1V confirm line [facility] DATE OF EXAM: 01/29/2023 COMPARISON: 02/01/2022 INDICATION: Line placement TECHNIQUE: Single frontal view of the chest is obtained. FINDINGS: The heart size is prominent. The pulmonary vasculature is normal. Small left lower lobe infiltrate or effusion may be present. There is a left central venous catheter with tip in the superior vena cava region. No pneumothorax is evident. IMPRESSION: 1. Left lower lobe infiltrate and/or effusion. 2. Left central venous catheter tip in the superior vena cava region. No pneumothorax present
[2023-01-29] MEDS ORDERED: ROPIVACAINE 1,100 MG, SODIUM CHLORIDE 0.9% 500 ML 330 ML, EMPTY PAIN BALL 1 EACH MISCELLANE PRN ×2 (11:52)
--- NOTE | 2023-01-29 11:54 | P.ANPRN ---
Procedure Note - Anesthesia - Nerve Block Performed Right Adductor Canal Infusion Time Out Performed: Yes Date of Procedure: 01/29/23 Procedure Start Time: 11:10 Procedure Stop Time: 11:17 Location of Patient: Phase I Indication: Acute Post-Operative Pain, Requested by Surgeon Specifically requested for management of pain by : Bartolo Kiran Sedation Type: Sedate with meaningful contact maintained Preparation: Sterile Prep, Sterile Dressing Position: Supine Catheter: Indwelling Needle Types: Pajunk Needle Gauge: 18 Ultrasound used to visualize needle placement: Yes Ultrasound used to observe medication spread: Yes Injectate: 0.5% Ropivacaine (see comment for volume) (30 ml + 4 mg dexamethasone) Blood Aspirated: No Pain Paresthesia on Injection Noted: No Resistance on Injection: Normal Image Stored and Saved: Yes Events: Uneventful and Well Tolerated
[2023-01-29] MEDS: HYDROmorphone 1 MG/ML 1 ML SYRINGE IVP PRN ×3 (12:59→20:34)
[2023-01-29] MEDS: LACTATED RINGERS 1,000 ML IV SCH (13:23)
[2023-01-29] MEDS: PREGABALIN 75 MG CAP PO SCH ×2 (17:36→20:14)
[2023-01-29] MEDS: ceFAZolin 3 GM in SODIUM CHLORIDE 0.9% 100 ML IVPB SCH ×2 (17:40→22:23)
[2023-01-29] MEDS: ONDANSETRON 4 MG/2 ML VIAL IVP PRN (18:21)
[2023-01-29] MEDS: SENNOSIDES-DOCUSATE SODIUM 1 EACH TAB PO SCH (20:13)
[2023-01-29] MEDS: oxyCODONE-APAP 10-325MG 1 EACH TAB PO PRN (22:23)
[2023-01-30] MEDS: HYDROmorphone 1 MG/ML 1 ML SYRINGE IVP PRN ×7 (00:06→20:33)
[2023-01-30] MEDS: LACTATED RINGERS 1,000 ML IV SCH (05:48)
[2023-01-30] MEDS: oxyCODONE-APAP 10-325MG 1 EACH TAB PO PRN ×2 (05:56→18:01)
--- NOTE | 2023-01-30 07:02 | P.PN ---
Progress Note - Text Progress Note Date: 01/30/23 Postoperative day # 1 status post total knee arthroplasty, and adductor canal catheter placed for postoperative analgesia, currently at ropivacaine 0.2% 8 mL per hour and continuous infusion, visual analogue scale is 3-4/10, patient using oral pain medication for breakthrough pain. Assessment and plan= Acute postoperative pain, adductor canal catheter for pain control, we will continue the same management.
[2023-01-30] MEDS: ONDANSETRON 4 MG/2 ML VIAL IVP PRN ×2 (07:06→20:32)
[2023-01-30] MEDS: hydrOXYzine pamoate 25 MG CAP PO PRN (08:28)
[2023-01-30] MEDS ORDERED: HYDROmorphone 1 MG/ML 1 ML SYRINGE IVP STA (08:35)
--- NOTE | 2023-01-30 08:54 | P.HPIM ---
History of Present Illness H&P Date: 01/30/23 Chief Complaint: Postop medical management This is a consultation on a 52-year-old white female with known history of mesenteric adenitis who is in for right total knee arthroplasty. The patient has element of chronic pain and opiate dependency. Hypertension is stable. The patient seen postop and is in quite a bit of pain. There was an unexpected change in her anesthesia. Dilaudid 1 mg every 3 hours has not been holding her as expected. I will give her an extra dose this morning. Otherwise the patient is seen for postop medical assistance and management. Review of Systems Constitutional: Denies chills, Denies fever Eyes: denies blurred vision, denies pain Cardiovascular: Denies chest pain, Denies shortness of breath Respiratory: Denies cough Gastrointestinal: Reports as per HPI Musculoskeletal: Reports as per HPI Musculoskeletal: right: knee pain Neurological: Denies numbness, Denies weakness Psychiatric: Denies anxiety, Denies depression Past Medical History Past Medical History: Hypertension, Osteoarthritis (OA), Sleep Apnea/CPAP/BIPAP Additional Past Medical History / Comment(s): MESENTERIC PANNICULITIS, Covid in 2021, Has not been using cpap for 2 years 01/29/2023, diverticulitis, lower back pain. History of Any Multi-Drug Resistant Organisms: None Reported Past Surgical History: Hysterectomy Additional Past Surgical History / Comment(s): 01-30-16 LAP SLEEVE GASTRECTOMY W/REPAIR OF HIATAL HERNIA Past Anesthesia/Blood Transfusion Reactions: Previous Problems w/ Anesthesia Additional Past Anesthesia/Blood Transfusion Reaction / Comment(s): c/o itching with twilight Past Psychological History: Anxiety Smoking Status: Never smoker Past Alcohol Use History: None Reported Past Drug Use History: None Reported - Past Family History Father History Unknown: Yes Family Medical History: Congestive Heart Failure (CHF), Diabetes Mellitus, Hypertension Medications and Allergies Home Medications Medication Instructions Recorded Confirmed Type Escitalopram [Lexapro] 20 mg PO DAILY 11/07/15 01/29/23 History Benazepril [Lotensin] 10 mg PO DAILY 04/02/18 01/29/23 History Ondansetron [Zofran] 4 mg PO Q8H PRN 04/02/18 01/29/23 History Cyclobenzaprine [Flexeril] 10 mg PO DAILY 01/25/23 01/29/23 History DULoxetine HCL [Cymbalta] 120 mg PO DAILY 01/25/23 01/29/23 History Famotidine 20 mg PO BID 01/25/23 01/29/23 History Pregabalin [Lyrica] 150 mg PO TID 01/25/23 01/29/23 History Tolterodine ER [Detrol LA] 4 mg PO DAILY 01/25/23 01/29/23 History oxyCODONE-APAP 10-325MG [Percocet 1 tab PO DIRECTED PRN 01/25/23 01/29/23 History 10-325 mg] Allergies Allergy/AdvReac Type Severity Reaction Status Date / Time Sulfa (Sulfonamide Allergy Rash/Hives Verified 01/29/23 06:15 Antibiotics) and SOB Physical Exam Vitals: Vital Signs Temp Pulse Pulse Resp BP Pulse Ox 01/30/23 07:39 99.0 F 102 H 18 125/74 91 L 01/30/23 01:35 98.2 F 72 18 135/66 99 01/29/23 20:00 97 F L 95 18 138/82 95 01/29/23 15:29 77 152/90 98 01/29/23 15:28 97 163/106 94 L 01/29/23 15:27 92 141/107 99 01/29/23 15:26 94 154/114 97 01/29/23 14:00 91 93 H 137/84 93 L 01/29/23 13:14 97.6 F 91 17 136/74 99 01/29/23 12:15 91 16 154/65 100 01/29/23 12:00 90 16 143/63 99 01/29/23 11:45 94 16 147/65 96 01/29/23 11:30 92 16 145/65 99 01/29/23 11:15 90 16 159/65 96 01/29/23 11:00 90 16 158/65 96 01/29/23 10:45 76 16 157/70 96 01/29/23 10:39 97.2 F L 99 18 145/65 94 L Intake and Output 01/29/23 01/30/23 01/30/23 22:59 06:59 14:59 Output Total 1050 Balance -1050 Output: Urine 1050 Other: Voiding Method Bedside Commode # Voids 2 3 - Constitutional General appearance: morbidly obese - EENT Eyes: EOMI - Neck Neck: no lymphadenopathy - Respiratory Respiratory: bilateral: diminished - Cardiovascular Rhythm: regular Heart sounds: normal: S1, S2 Abnormal Heart Sounds: no S3 Gallop - Gastrointestinal General gastrointestinal: soft, no tenderness - Psychiatric Psychiatric: A&O x's 3, appropriate affect Thrombosis Risk Factor Assmnt - Choose All That Apply Any of the Below Risk Factors Present?: Yes Each Factor Represents 1 point: Obesity (BMI >25), Varicose veins Other Risk Factors: Yes Each Risk Factor Represents 2 Points: Laparoscopic surgery Each Risk Factor Represents 5 Points: Elective major lower extremity arthoplasty Thrombosis Risk Factor Assessment Total Risk Factor Score: 9 Thrombosis Risk Factor Assessment Level: High Risk Assessment and Plan (1) Osteoarthritis of right knee Current Visit: Yes Status: Acute Code(s): M17.11 - UNILATERAL PRIMARY OSTEOARTHRITIS, RIGHT KNEE SNOMED Code(s): 166997771164125 (2) Status post total right knee replacement Current Visit: Yes Status: Acute Code(s): Z96.651 - PRESENCE OF RIGHT ARTIFICIAL KNEE JOINT SNOMED Code(s): 4553053850547 (3) Essential (primary) hypertension Current Visit: No Status: Acute Code(s): I10 - ESSENTIAL (PRIMARY) HYPERTENSION SNOMED Code(s): 69151378 (4) GERD (gastroesophageal reflux disease) Current Visit: No Status: Acute Code(s): K21.9 - GASTRO-ESOPHAGEAL REFLUX DISEASE WITHOUT ESOPHAGITIS SNOMED Code(s): 077420344 (5) Mesenteric panniculitis Current Visit: No Status: Acute Code(s): K65.4 - SCLEROSING MESENTERITIS SNOMED Code(s): 9086374456409212 (6) Morbid obesity Current Visit: No Status: Acute Code(s): E66.01 - MORBID (SEVERE) OBESITY DUE TO EXCESS CALORIES SNOMED Code(s): 340091684 Plan: We'll reconcile medications. Assist with pain control this morning. Check CBC and CMP in a.m. Standardized pulmonary toilet postoperatively. Input per PT. Time with Patient: Greater than 30
[2023-01-30] MEDS ORDERED: NON FORMULARY DRUG (Pregabalin [Lyrica] 150 MG Capsule) PO SCH (09:00)
[2023-01-30] MEDS ORDERED: CYCLOBENZAPRINE 10 MG TAB PO SCH (09:00)
[2023-01-30 09:26] LABS: Basophils # (A) 0.01 X 10*3/uL (0.00-0.10); Basophils % (A) 0.1 %; Eosinophils # (A) 0 X 10*3/uL (0.04-0.35); Eosinophils % (A) 0 %; HCT 30.2 % (37.2-46.3); HGB 9.8 d/dL (12.0-15.0); Lymphocytes # (A) 0.86 X 10*3/uL (0.90-5.00); Lymphocytes % (A) 9.9 %; MCH 29.7 pg (27.0-32.0); MCHC 32.5 d/dL (32.0-37.0); MCV 91.5 FL (80.0-97.0); Mean Platelet Volume 10.7 FL (9.5-12.2); Monocytes # (A) 0.53 X 10*3/uL (0.20-1.00); Monocytes % (A) 6.1 %; NRBC Per 100 WBC 0 X 10*3/uL (0.00-0.01); Neutrophils # (A) 7.21 X 10*3/uL (1.80-7.70); Neutrophils % (A) 83.3 %; Platelet Count 295 X 10*3/uL (140-440); RDW 12.9 % (11.5-14.5); WBC 8.66 X 10*3/uL (4.50-10.00)
[2023-01-30] MEDS: traMADol 50 MG TAB PO PRN (09:55)
[2023-01-30] MEDS: RIVAROXABAN 10 MG TAB PO SCH (10:28)
[2023-01-30] MEDS: OXYBUTYNIN 10 MG TAB.ER.24 PO SCH (10:28)
[2023-01-30] MEDS: CYCLOBENZAPRINE 10 MG TAB PO SCH (10:29)
[2023-01-30] MEDS: PREGABALIN 75 MG CAP PO SCH ×3 (10:29→22:02)
[2023-01-30] MEDS: lisinopriL 10 MG TAB PO SCH (10:30)
[2023-01-30] MEDS: FAMOTIDINE 20 MG TAB PO SCH ×2 (10:30→22:01)
[2023-01-30] MEDS: ESCITALOPRAM 20 MG TAB PO SCH (11:15)
[2023-01-30] MEDS: DULoxetine HCL 60 MG CAPSULE.DR PO SCH (11:15)
--- NOTE | 2023-01-30 12:39 | P.PN ---
Subjective Progress Note Date: 01/30/23 Principal diagnosis: Right knee osteoarthritis Patient was seen at bedside this morning lying semirecumbent position with dressing over right knee and ice packs. Patient says she has been in a lot of pain since surgery yesterday. Patient says she has been up a few times to the commode next to bed. Patient says she has not worked with physical therapy. Patient says she has not had bowel movement yet, however, patient says she has been passing gas. Patient says she does have a walker at home. Patient denies chest pain, fever, shortness of breath, nausea, vomiting, change in vision, loss of bowel/bladder control. Objective - Vital Signs Vital signs: Vital Signs Temp 99.0 F 01/30/23 07:39 Pulse 102 H 01/30/23 07:39 Resp 18 01/30/23 07:39 BP 125/74 01/30/23 07:39 Pulse Ox 91 L 01/30/23 07:39 FiO2 Intake & Output 01/29/23 01/30/23 01/30/23 18:59 06:59 18:59 Intake Total 851 Output Total 1250 Balance -399 Weight 149.1 kg Intake: IV 851 Output: Urine 1050 Estimated Blood Loss 200 Other: Voiding Method Bedside Commode Bedside Commode # Voids 2 3 - Exam Right knee: Incision is clean, dry, and intact. The exofin fusion tape is in good condition. There is minimal soft tissue swelling and ecchymosis surrounding the medial and lateral aspects of the incision. Calf is soft, no tenderness with palpation. Plantar flexion, dorsiflexion, EHL, FHL are intact. Sensory exam to light touch throughout the extremity is intact, dorsal pedis pulses 2+. - Labs CBC & Chem 7: 01/30/23 05:03 Labs: Abnormal Lab Results - Last 24 Hours (Table) 01/30/23 Range/Units 05:03 RBC 3.30 L (4.10-5.20) X 10*6/uL Hgb 9.8 L (12.0-15.0) d/dL Hct 30.2 L (37.2-46.3) % Lymphocytes # 0.86 L (0.90-5.00) X 10*3/uL Eosinophils # 0 L (0.04-0.35) X 10*3/uL Assessment and Plan Assessment: 1. Right knee osteoarthritis - Postop day 1 status post right total knee arthroplasty Plan: 1. Right knee osteoarthritis - right total knee arthroplasty performed yesterday, 01/29/2023. Patient stable at bedside this morning. Patient has been able to get up with some home help today to commode. Tramadol has been added for additional pain control. We'll begin patient will more name the hospital for pain control. Plan for discharge home tomorrow with health services. 2. Appreciate medical management 3. Pain management - oxycodone; tramadol; Flexeril; Lyrica 4. DVT prophylaxis - Xarelto 5. GI prophylaxis - senna 6. PT/OT - weightbearing as tolerated with walker and assistance as needed 7. Encourage incentive spirometer use 8. Discharge planning - plan for discharge home tomorrow with health services Time with Patient: Less than 30
[2023-01-30] MEDS: SENNOSIDES-DOCUSATE SODIUM 1 EACH TAB PO SCH (22:01)
[2023-01-31] MEDS: HYDROmorphone 1 MG/ML 1 ML SYRINGE IVP PRN (00:30)
[2023-01-31 02:04] VITALS: RESP 18
[2023-01-31] MEDS: oxyCODONE-APAP 10-325MG 1 EACH TAB PO PRN ×3 (03:31→14:50)
[2023-01-31] MEDS: LACTATED RINGERS 1,000 ML IV SCH (06:05)
[2023-01-31] MEDS: traMADol 50 MG TAB PO PRN (07:34)
[2023-01-31] MEDS: hydrOXYzine pamoate 25 MG CAP PO PRN ×2 (07:34→14:51)
[2023-01-31 07:41] VITALS: BP 129/76; PULSE 102; TEMP 99
--- NOTE | 2023-01-31 08:29 | P.PN ---
Subjective Progress Note Date: 01/31/23 Principal diagnosis: Right knee Osteoarthritis This is a 52-year-old female who underwent a right total knee arthroplasty on 01/29/[address] Kiran. Postoperatively she did have quite a bit of pain which has now improved. She is seen resting comfortably in bed this morning. She reports she is tolerating diet. Vitals have been stable. She reports she has ambulated in her room. She reports she is passing gas. Objective - Vital Signs Vital signs: Vital Signs Temp 99.0 F 01/31/23 07:11 Pulse 102 H 01/31/23 07:11 Resp 18 01/31/23 07:11 BP 129/76 01/31/23 07:11 Pulse Ox 96 01/31/23 07:11 FiO2 Intake & Output 01/30/23 01/31/23 01/31/23 18:59 06:59 18:59 Other: Voiding Method Bedside Commode # Voids 4 2 - Constitutional General appearance: Present: cooperative, no acute distress - EENT Eyes: Present: PERRLA - Neck Neck: Present: normal ROM. Absent: lymphadenopathy, rigidity - Respiratory Respiratory: bilateral: diminished - Cardiovascular Rhythm: regular Heart sounds: normal: S1, S2 - Gastrointestinal General gastrointestinal: Present: soft. Absent: tenderness - Psychiatric Psychiatric: Present: A&O x's 3, appropriate affect, intact judgment & insight - Labs CBC & Chem 7: 01/30/23 05:03 Labs: Abnormal Lab Results - Last 24 Hours (Table) 01/30/23 Range/Units 05:03 RBC 3.30 L (4.10-5.20) X 10*6/uL Hgb 9.8 L (12.0-15.0) d/dL Hct 30.2 L (37.2-46.3) % Lymphocytes # 0.86 L (0.90-5.00) X 10*3/uL Eosinophils # 0 L (0.04-0.35) X 10*3/uL Assessment and Plan (1) Osteoarthritis of right knee Current Visit: Yes Status: Acute Code(s): M17.11 - UNILATERAL PRIMARY OSTEOARTHRITIS, RIGHT KNEE SNOMED Code(s): 199146153527502 (2) Status post total right knee replacement Current Visit: Yes Status: Acute Code(s): Z96.651 - PRESENCE OF RIGHT ARTIFICIAL KNEE JOINT SNOMED Code(s): 7865622363468 (3) Essential (primary) hypertension Current Visit: No Status: Acute Code(s): I10 - ESSENTIAL (PRIMARY) HYPERTENSION SNOMED Code(s): 36099651 (4) GERD (gastroesophageal reflux disease) Current Visit: No Status: Acute Code(s): K21.9 - GASTRO-ESOPHAGEAL REFLUX DISEASE WITHOUT ESOPHAGITIS SNOMED Code(s): 832973653 (5) Mesenteric panniculitis Current Visit: No Status: Acute Code(s): K65.4 - SCLEROSING MESENTERITIS SNOMED Code(s): 4161121305091892 (6) Morbid obesity Current Visit: No Status: Acute Code(s): E66.01 - MORBID (SEVERE) OBESITY DUE TO EXCESS CALORIES SNOMED Code(s): 542663563 Plan: Pain better controlled today. Patient is medically cleared for discharged from our standpoint. Patient seen and evaluated by nurse practitioner, physician in agreement with plan
[2023-01-31] MEDS: RIVAROXABAN 10 MG TAB PO SCH (09:37)
[2023-01-31] MEDS: PREGABALIN 75 MG CAP PO SCH (09:37)
[2023-01-31] MEDS: FAMOTIDINE 20 MG TAB PO SCH (09:37)
[2023-01-31] MEDS: DULoxetine HCL 60 MG CAPSULE.DR PO SCH (09:38)
[2023-01-31] MEDS: ONDANSETRON 4 MG/2 ML VIAL IVP PRN (09:41)
[2023-01-31] MEDS: lisinopriL 10 MG TAB PO SCH (09:48)
[2023-01-31] MEDS: CYCLOBENZAPRINE 10 MG TAB PO SCH (09:49)
[2023-01-31] MEDS: OXYBUTYNIN 10 MG TAB.ER.24 PO SCH (09:49)
[2023-01-31] MEDS: ESCITALOPRAM 20 MG TAB PO SCH (09:49)
--- NOTE | 2023-01-31 12:34 | P.DS ---
Providers Date of admission: 01/29/23 10:26 Expected date of discharge: 01/31/23 Attending physician: Bartolo Kiran Consults: 01/29/23 10:14 Consult Physician Routine Consulting Provider: Ezekiel Friend Consult Reason/Comments: medical management s/p right total knee arthroplasty Do you want consulting provider notified?: Yes Primary care physician: Ezekiel Friend Hospital Course: Date of admission: 01/29/2023 Date of discharge: 01/31/2023 Admission diagnosis: Right knee osteoarthritis Discharge diagnosis: Same Attending physician: Dr. Kiran Surgical procedures: Right total knee arthroplasty Brief history: Patient is a 52-year-old female with a history of progressive primary right knee osteoarthritis. At this point patient has failed conservative treatment measures and has opted to proceed with a elective right total knee arthroplasty. Hospital course: Details of patient's surgery can be found in operative report. Patient tolerated the procedure well and was subsequently transported to orthopedic floor. Patient's orthopeidc and medical care was provided daily. Patient had daily laboratory tests performed for evaluation of overall blood counts. Patient had daily physical therapy to include strengthening range of motion as well as education with walker ambulation. Patient was treated with Xarelto for their postoperative DVT prophylaxis during their inpatient stay. Patient was noted to have a relatively uneventful postoperative course. Patient reported satisfactory pain control with oral pain medications by postoperative day 2. Patient showed satisfactory progress with physical therapy. Patient moved steadily through the program and had no difficulty meeting the goals by postoperative day 2. Given patient's otherwise satisfactory course and having met physical therapy goals, plan is to discharge patient home with health services on postoperative day 2. Discharge condition/disposition: Patient will be discharged home with health services in stable condition. Discharge medications: Instructions are given on resumption of patient's normal daily medications per primary care recommendation, in addition patient will be prescribed oxycodone; tramadol; Eliquis 2.5 mg twice a day 2 weeks; senna. Discharge instructions: 1. Wound care and infection precautions, keep incision dry and covered while showering, no lotions, creams, moisturizers. No soaking, tubs, pools, hottubs. Do not scrub over the incision. 2. Weight-bear as tolerated with walker / cane until follow-up. 3. Ice and elevate when necessary. Do not exceed 20 minutes per hour with ice pack. 4. Utilize compression sleeve until seen at first follow up appointment. 5. Visiting nursing care. 6. Home physical therapy including home CPM. 7. Pain meds and anticoagulants per prescription. 8. Pain medication has potential to cause constipation. Increase oral fluid and fiber intake. Contact primary care provider if you have not had a bowel movement within 48 hours after discharge 9. No anti-inflammatory medication until discussed at first post operative visit, this including Motrin, Aleve, Mobic, Diclofenac. 10. Follow up in office at 2 weeks postop with Kristopher Manning PA-C / Pieter Elizabeth PA-C 11. Follow up with your primary care doctor 7-10 days after discharge. 12. Contact [facility] with any questions, . Assessment: Right knee osteoarthritis Procedures: Right total knee arthroplasty Patient Condition at Discharge: Good Plan - Discharge Summary Discharge Rx Participant: No New Discharge Prescriptions: New oxyCODONE-APAP 10-325MG [Percocet 10-325 mg] 1 tab PO Q6HR PRN #28 tab PRN Reason: Pain Sennosides/Docusate Sodium [Senna Plus 8.6-50 mg Softgel] 1 each PO DAILY #20 capsule traMADol HCL 50 mg PO TID #21 tab Apixaban [Eliquis] 2.5 mg PO BID #60 tab No Action Escitalopram [Lexapro] 20 mg PO DAILY Ondansetron [Zofran] 4 mg PO Q8H PRN PRN Reason: Nausea Benazepril [Lotensin] 10 mg PO DAILY DULoxetine HCL [Cymbalta] 120 mg PO DAILY oxyCODONE-APAP 10-325MG [Percocet 10-325 mg] 1 tab PO DIRECTED PRN PRN Reason: Pain Tolterodine ER [Detrol LA] 4 mg PO DAILY Pregabalin [Lyrica] 150 mg PO TID Famotidine 20 mg PO BID Cyclobenzaprine [Flexeril] 10 mg PO DAILY Discharge Medication List Escitalopram [Lexapro] 20 mg PO DAILY 11/07/15 [History] Benazepril [Lotensin] 10 mg PO DAILY 04/02/18 [History] Ondansetron [Zofran] 4 mg PO Q8H PRN 04/02/18 [History] Cyclobenzaprine [Flexeril] 10 mg PO DAILY 01/25/23 [History] DULoxetine HCL [Cymbalta] 120 mg PO DAILY 01/25/23 [History] Famotidine 20 mg PO BID 01/25/23 [History] Pregabalin [Lyrica] 150 mg PO TID 01/25/23 [History] Tolterodine ER [Detrol LA] 4 mg PO DAILY 01/25/23 [History] oxyCODONE-APAP 10-325MG [Percocet 10-325 mg] 1 tab PO DIRECTED PRN 01/25/23 [History] Apixaban [Eliquis] 2.5 mg PO BID #60 tab 01/31/23 [Rx] Sennosides/Docusate Sodium [Senna Plus 8.6-50 mg Softgel] 1 each PO DAILY #20 ca psule 01/31/23 [Rx] oxyCODONE-APAP 10-325MG [Percocet 10-325 mg] 1 tab PO Q6HR PRN #28 tab 01/31/23 [Rx] traMADol HCL 50 mg PO TID #21 tab 01/31/23 [Rx] Follow up Appointment(s)/Referral(s): Pieter Elizabeth, MELVIN [PHYSICIAN [employer] LOAN SPECIALIST] - 02/08/23 1:30 pm [facility],Equipment [NON-STAFF] - As Needed (Please call [facility] once home to arrange delivery of the Continuous Passive Motion (CPM) machine. ) Ezekiel Friend MD [Primary Care Provider] - 1 Week [facility], [NON-STAFF] - 1-2 Days ([facility] will call you to schedule your in home nursing and physical therapy visits. ) Patient Instructions/Handouts: Knee Replacement (DC) Activity/Diet/Wound Care/Special Instructions: Orthopedic Discharge Instructions: 1. Wound care and infection precautions, keep incision dry and covered while showering, no lotions, creams, moisturizers. No soaking, pools, hot tubs. Do not scrub over incision. 2. Weight-bear as tolerated with walker / cane until follow-up. 3. Ice and elevate when necessary. Do not exceed 20 minutes per hour with ice pack. 4. Utilize compression sleeve until seen at first follow up appointment. 5. Pain meds and anticoagulants per prescription. 6. Pain medication has potential to cause constipation. Increase oral fluid and fiber intake. Contact primary care provider if you have not had a bowel movement within 48 hours after discharge. 7. No anti-inflammatory medication until discussed at first post operative visit, this including Motrin, Aleve, Mobic, Diclofenac. 8. Follow up in office at 2 weeks postop with Kristopher Manning PA-C / Pieter Elizabeth PA-C 9. Follow up with your primary care doctor 7-10 days after discharge. 10. Contact [facility] with any questions, . Keep incision clean, dry, intact. While showering, cover fusion tape with Saran wrap. Keep fusion tape on until follow-up appointment in office in 2 weeks. Discharge Disposition: HOME WITH HOME HEALTH SERVICES
--- NOTE | 2023-01-31 12:36 | P.PN ---
Subjective Progress Note Date: 01/31/23 Principal diagnosis: Right knee osteoarthritis Patient was seen at bedside this morning was sitting up in chair with legs elevated. Patient says her pain is under better control today. Patient says she is hoping to go home later today. Patient says she does have a walker at [facility]. Patient says she has urinated daily since surgery was performed. Patient says she has been passing gas, but she has not had bowel movement yet. Patient denies chest pain, fever, shortness breath, nausea, vomiting, change in vision, loss of bowel/bladder control. Objective - Vital Signs Vital signs: Vital Signs Temp 99.0 F 01/31/23 07:11 Pulse 102 H 01/31/23 07:11 Resp 18 01/31/23 08:51 BP 129/76 01/31/23 07:11 Pulse Ox 96 01/31/23 07:11 FiO2 Intake & Output 01/30/23 01/31/23 01/31/23 18:59 06:59 18:59 Intake Total 300 Balance 300 Intake: Oral 300 Other: Voiding Method Bedside Commode Bedside Commode # Voids 4 2 - Exam Right knee: Incision is clean, dry, and intact. The exofin fusion tape is in good condition. There is minimal soft tissue swelling and ecchymosis surrounding the medial and lateral aspects of the incision. Calf is soft, no tenderness with palpation. Plantar flexion, dorsiflexion, EHL, FHL are intact. Sensory exam to light touch throughout the extremity is intact, dorsal pedis pulses 2+. - Labs CBC & Chem 7: 01/30/23 05:03 Assessment and Plan Assessment: 1. Right knee osteoarthritis - Postop day 2 status post right total knee arthroplasty Plan: 1. Right knee osteoarthritis - right total knee arthroplasty performed 01/29/2023. Patient stable at bedside this morning. Pending patient doing stairs with physical therapy this afternoon, plan for discharge home this afternoon with health services 2. Appreciate medical management 3. Pain management - oxycodone; tramadol; Flexeril; Lyrica 4. DVT prophylaxis - Xarelto; going home with Eliquis 2.5 mg twice a day 2 weeks 5. GI prophylaxis - senna 6. PT/OT - weightbearing as tolerated with walker and assistance as needed 7. Encourage incentive spirometer use 8. Discharge planning - discharge home today with health services pending doing stairs with physical therapy Time with Patient: Less than 30
== END 2023-01-31 15:18 | disposition home health service (06) ==
LOC: OR 05:53 → 4SSUR 10:11 → OR 10:25 → 4SSUR 10:26
PROVIDERS: ADMIT Orthopaedic Surgery; ATTEND Orthopaedic Surgery
DX: M17.11 Unilateral primary osteoarthritis, right knee (principal); G89.18 Other acute postprocedural pain; G47.33 Obstructive sleep apnea (adult) (pediatric); I10 Essential (primary) hypertension; K65.4 Sclerosing mesenteritis; K57.90 Diverticulosis of intestine, part unspecified, without perforation or abscess without bleeding; I83.90 Asymptomatic varicose veins of unspecified lower extremity; K21.00 Gastro-esophageal reflux disease with esophagitis, without bleeding; F41.9 Anxiety disorder, unspecified; E66.01 Morbid (severe) obesity due to excess calories; Z68.44 Body mass index [BMI] 60.0-69.9, adult; Z79.899 Other long term (current) drug therapy; Z88.2 Allergy status to sulfonamides; Z86.16 Personal history of COVID-19; Z87.01 Personal history of pneumonia (recurrent); Z90.710 Acquired absence of both cervix and uterus; Z98.84 Bariatric surgery status; Z87.19 Personal history of other diseases of the digestive system; Z82.49 Family history of ischemic heart disease and other diseases of the circulatory system; Z83.3 Family history of diabetes mellitus
CPT/HCPCS: 97116; 97161; 64448; 85025; 73560; 27447; G0378 ×2; C1713 ×2; C1776; C1751; J2250; J0330; J1100; J2710; J0690 ×2; J2405 ×3; J2001; J3010; J1170 ×4; J2795; J2704; J2371

== ENCOUNTER → 2023-06-05 | Outpatient (CLI) | payer MEDICARE ==
--- NOTE | 2023-06-05 18:23 | XR ---
EXAMINATION TYPE: XR chest 2V DATE OF EXAM: 06/05/2023 COMPARISON: NONE HISTORY: Shortness of breath TECHNIQUE: Frontal and lateral views of the chest are obtained. FINDINGS: Scattered senescent parenchymal changes noted. No evidence for infiltrate. No evidence for atelectasi s. Heart size is stable. Mediastinal structures are stable and grossly unremarkable. No evidence for hilar prominence. Degenerative changes dorsal spine. IMPRESSION: 1. No evidence for acute pulmonary disease.
== END | disposition home or self-care (01) ==
LOC: RADXRMAIN 17:43
PROVIDERS: ATTEND Family Medicine
DX: R05.9 Cough, unspecified (principal); R06.02 Shortness of breath
CPT/HCPCS: 71046

== ENCOUNTER → 2023-12-31 | Outpatient (CLI) | payer MEDICARE ==
--- NOTE | 2023-12-31 22:26 | CT ---
EXAMINATION TYPE: CT abdomen pelvis wo con DATE OF EXAM: 12/31/2023 COMPARISON: None INDICATION: mesenteric adenitis DLP: 1536.8 mGycm, Automated exposure control for dose reduction was used. CONTRAST: 0 mL of Isovue 300. Study performed without Oral Contrast TECHNIQUE: Axial images were obtained from above the diaphragm to the pubic rami in the axial plane a t 5 mm thick sections. Reconstructed images are reviewed on the computer in the coronal plane. FINDINGS: Limited CT sections are obtained the lung bases. The lung bases are clear. CT ABDOMEN: Gastric sleeve is present. There is mild increased inflammatory type change within the mid mesenteric fat. Suspicious enlarged l ymph nodes are not evident. Findings nonspecific. Some mesenteric inflammatory change may be present. Liver: Normal Spleen: Normal Pancreas: Normal Adrenal glands: The adrenal glands are normal. Gallbladder: Normal Kidneys: No masses are evident. No hydronephrosis is present. No cysts are present. No renal stone s are evident. Aorta: Normal Inferior vena cava: Normal. CT PELVIS: Loops of bowel within the abdomen and pelvis are normal. No suspicious dilated loops of bowel are evident. The study is without oral contrast Limited bowel evaluation. Appendix: Not visualized. No dilated tubular structure or inflammatory change at the right lower quad rant is evident. Urinary bladder: Normal as visualized. This is largely decompressed. Genitourinary structures: Uterus and ovaries are not identified. Osseous structures: No suspicious lytic or sclerotic lesions. Spondylolysis is likely present in the lower lumbar spine IMPRESSION: 1. There is inflammatory type change within the mesentery of the mid abdomen. This is increased from comparison. Enlarged lymph nodes however not present. [facility], Workstation: [facility], 12/31/2023 10:24 PM
== END | disposition home or self-care (01) ==
LOC: RADCTMAIN 17:45
PROVIDERS: ATTEND Family Medicine
DX: R59.9 Enlarged lymph nodes, unspecified (principal)
CPT/HCPCS: 74176

== ENCOUNTER → 2024-04-24 | Outpatient (CLI) | payer MEDICARE ==
--- NOTE | 2024-04-24 11:28 | MR ---
EXAMINATION TYPE: MR lumbar spine wo con DATE OF EXAM: 04/24/2024 11:02 AM COMPARISON: CT abdomen and pelvis 12/31/2023 CLINICAL INDICATION: Female, 53 years old with history of M54.16 radiculopathy, LOWER BACK PAIN/ NERV E PAIN IN LEGS AND FEET X3 MONTHS/ PAIN IN CENTER OF BACK AND IT TRAVELS TO PT'S RIGHT AND LEFT OUTER THIGH TECHNIQUE: Multiplanar, multisequence images of the lumbar spine were acquired. IV Contrast: mL (None, if empty) FINDINGS: Cord ends at the L1-L2 level. L5-S1: There is a grade 1 spondylolisthesis of L5 anteriorly on S1. Disc space narrowing is present. Disc uncovering is present with anterior thecal sac contact. No thecal sac deformity is evident. Janki re right foraminal stenosis may have some nerve root compression neural foramen. There is severe left foraminal stenosis as well. Spondylolysis of L5 may be present. L4-L5: There may be some minimal disc bulging without thecal sac compression. No spinal canal stenosi s present. Neural foramen are patent. L3-L4: No focal disc herniation or significant disc bulge. No spinal canal stenosis. Neural foramen are patent. L2-L3: No focal disc herniation or significant disc bulge. No spinal canal stenosis. Neural foramen are patent. L1-L2: No focal disc herniation or significant disc bulge. No spinal canal stenosis. Neural foramen are patent. Schmorl's node formation at superior L2 endplate may be present. T12-L1: No focal disc herniation or significant disc bulge. No spinal canal stenosis. Neural forame n are patent. IMPRESSION: 1. Grade 1 spondylolisthesis of L5 anteriorly on S1. 2. Disc uncovering without spinal canal stenosis. 3. Spondylolysis at L5 present. [facility], , 04/24/2024 11:26 AM
== END | disposition home or self-care (01) ==
LOC: RADMRIMAIN 10:06
PROVIDERS: ATTEND Psychiatry & Neurology Neurology
DX: M43.17 Spondylolisthesis, lumbosacral region (principal); M47.26 Other spondylosis with radiculopathy, lumbar region
CPT/HCPCS: 72148

== ENCOUNTER → 2024-06-17 | Outpatient (CLI) | payer MEDICARE ==
[2024-06-17 21:04] LABS: NT-Pro-B-Type Natriuretic Pept 164 pg/mL (0-125)
[2024-06-17 21:07] LABS: ALT 14 U/L (8-44); AST 24 U/L (13-35); Albumin 4.1 g/dL (3.8-4.9); Albumin/Globulin Ratio 1.78 Ratio (1.60-3.17); Alkaline Phosphatase 91 U/L (41-126); BUN/Creat Ratio 18.62 Ratio (12.00-20.00); Blood Urea Nitrogen 14.9 mg/dL (9.0-27.0); Calcium 9.3 mg/dL (8.7-10.3); Carbon Dioxide 25.4 mmol/L (21.6-31.8); Chloride 103 mmol/L (96-109); Globulin 2.3 g/dL (1.6-3.3); Glucose 87 mg/dL (70-110); Potassium 4.1 mmol/L (3.5-5.5); Sodium 141 mmol/L (135-145); Total Bilirubin 0.4 mg/dL (0.3-1.2); Total Protein 6.4 g/dL (6.2-8.2)
== END | disposition home or self-care (01) ==
LOC: LABWHC1 13:21
PROVIDERS: ATTEND Family Medicine
DX: R60.9 Edema, unspecified (principal)
CPT/HCPCS: 36415; 80053; 83880